=== PATIENT | male | born 1965 | race Two or more races ===

== ENCOUNTER 2025-06-14 17:56 | Inpatient (IN) | payer MEDICAID, OTHER ==
[~2025-06-14] VITALS: Ht 182.9 cm; Wt 121.4 kg
[2025-06-14 18:21] VITALS: PULSE 101; RESP 21; O2SAT 89
[2025-06-14] MEDS: FUROSEMIDE 100 MG/10ML VIAL IV ONE (18:32)
--- NOTE | 2025-06-14 18:46 | DVH ---
CHEST RADIOGRAPH Indication: sob Technique: XY CHEST PORTABLE COMPARISON: None FINDINGS: The cardiac silhouette is enlarged. The lungs demonstrate bilateral patchy airspace opacities. The pulmonary vasculature is prominent. There are small bilateral pleural effusions, [id number]-right. There is no pneumothorax. IMPRESSION: As above
[2025-06-14 18:56] LABS: Hematocrit 50.9 % (41.0-53.0); Hemoglobin 16.8 g/dL (13.5-17.5); Mean Corpuscular Hemoglobin 30.5 pg (28.0-32.0); Mean Corpuscular Volume 92.6 fL (80.0-100.0); Nucleated Red Blood Cells % 0.1 %
--- NOTE | 2025-06-14 18:58 | ED.PDOC ---
SOB-HPI HPI Comments HPI: Poor Historian. 59-year-old male who came to ER for shortness of breath. Patient does have history of anemia, the engine and congestive heart failure. Has been off his Lasix for the past 2 months. Patient complaining of shortness of breath over a month. Saturating 95% on room air Past Medical History: Anemia, hypertension, congestive heart failure Past Surgical History: Denies REVIEW OF SYSTEMS: CONSTITUTIONAL: Denies acute: fever, diaphoresis, chills, HEAD: Denies acute: headache, photophobia Eyes: Denies acute: Double vision, vision loss, eye pain, eye discharge. EARS: Denies acute: tinnitus, hearing loss, ear discharge, ear pain, THROAT: Denies acute: sore throat, swelling, difficulty swallowing , pain with swallowing, change in voice. NECK: Denies acute: neck pain, neck swelling, stiff neck. HEART: Denies acute : chest pain, palpitations, LUNGS: Denies acute: wheezing, cough, hemoptysis ABDOMEN: Denies acute: abdominal pain, Nausea, Vomiting, diarrhea, melena , hematemesis, hematochezia SKIN: Denies acute: rash, redness, lesions, itchiness. EXTREMITIES: Denies acute: calf pain, numbness, tingling, weakness, denies pain in extremity. Denies acute: Low back pain. Neuro: Denies acute: focal neurological deficit, motor or sensory focal neurological deficit, tremors, seizure like activity, confusion, dizziness, change in mental status, loss of bowel or bladder function, cauda equina like symptoms. : Denies acute: dysuria, hematuria, flank pain, increase in urinary frequency. PSYCH: Denies acute: hallucination, suicidal ideation, homicidal ideation. PHYSICAL EXAM: General: -----mild to moderate---acute distress, awake and alert. Head: normocephalic, atraumatic. No raccoon's eyes, no guy sign. Neck: supple, trachea is midline, no swelling. Throat: Normal phonation. Eyes:, no erythema, no purulent discharge, no proptosis, no icterus. Heart: regular rate, regular rhythm, no significant murmur appreciated. Lungs: Mild respiratory distress, Able to speak in full sentences. No wheezing, no rhonchi, no crackles. No stridors Abdomen: non tender to palpation, non distended, soft, no guarding, no rebound, + bowel sounds. Neuro: Awake, Alert, oriented to name, self, situation, follows commands GCS=15. Speech is normal. Skin: no petechia, no purpura, no cyanosis, non-pale, not jaundice. Lower extremities: --2/4 b/l - Pitting edema no deformity, no focal swelling, no calf TTP. Makes eye contact. moves all four extremities. Face: no apparent facial droop. ED COURSE: DISCLAIMER: This medical document was created using an electronic medical record system with voice recognition software and computerized dictation system. Although this document has been carefully reviewed, there might still be some phonetic and typographical errors. Occasional wrong-word or "sound-alike" substitutions may have occurred due to the inherent limitations of voice recognition software. These areas are purely typographical due to imperfections of the software programs and do not reflect any compromise in the patient's medical care. Please read the chart carefully and recognize, using context, where these substitutions have occurred. Chief Complaint: Shortness of Breath Time Seen by MD: 18:10 Reviewed notes: Nurses Notes, Allergies Information Source: Patient Mode of Arrival: EMS Past Medical History PAST MEDICAL HISTORY: Anemia, CHF, HTN EKG EKG : Pulse Rate (adult): 105 Cardiac Rhythm: ST Hypertrophy: LAE, AMISHA Was a procedure done? Was a procedure done?: No Differential Dx Differential Diagnosis: CHF, COPD, Pneumonia, Respiratory Distress, Other (DDx include ACS, unstable angina, anxiety, PE, pneumothroax, neoplasm, cardiac ischemia, COPD, asthma, CHF, pleural effusion, tobacco abuse, pneumonia, hypoxia, hypercapnia, anemia., infection/sepsis., pulmonary edema. Asthma, Cardiac tamponade, infection.) X-Ray, Labs, Meds, VS Vital Signs Date Time Temp Pulse Resp B/P (MAP) Pulse Ox O2 Delivery O2 Flow Rate FiO2 06/14/25 21:00 89 19 145/101 (116) 96 06/14/25 19:45 98 18 142/105 (117) 95 06/14/25 19:45 98 98 Room Air* 0 21 06/14/25 19:10 105 06/14/25 18:44 100 35 141/101 (114) 95 06/14/25 18:32 151/112 06/14/25 18:30 105 06/14/25 18:21 98.4 101 24 151/112 (125) 89 98.4 06/14/25 18:21 101 21 89 Nasal Cannula* 2 28 06/14/25 17:58 98.9 107 24 167/123 95 98.9 Lab Test 06/14/25 19:25 06/14/25 18:49 06/14/25 18:43 06/14/25 09:33 Range/Units Troponin I High Sensitivity 495 *H 462 *H </=54 ng/L Urine Color Light-yellow Yellow Urine Clarity Clear Clear Urine pH 6.5 5.0-9.0 Urine Specific Speculator 1.011 1.001-1.035 Urine Protein Trace H Negative Urine Ketones Negative Negative Urine Blood Negative Negative /uL Urine Nitrite Negative Negative Urine Bilirubin Negative Negative Urine Urobilinogen Normal Negative mg/dL Urine Leukocyte Esterase Negative Negative /uL Urine RBC 1 0 - 3 /hpf Urine Microscopic WBC < 1 0-3 /HPF Urine Squamous Epithelial Cells None seen <5 /hpf Urine Bacteria None seen None Seen /hpf Urine Glucose Normal Normal mg/dL White Blood Count 7.8 4.4-10.8 10^3/uL Red Blood Count 5.50 4.5-5.90 10^6/uL Hemoglobin 16.8 13.5-17.5 g/dL Hematocrit 50.9 41.0-53.0 % Mean Corpuscular Volume 92.6 80.0-100.0 fL Mean Corpuscular Hemoglobin 30.5 28.0-32.0 pg Mean Corpuscular Hemoglobin Concent 33.0 32.0-36.0 g/dL Red Cell Distribution Width 17.3 H 11.8-14.3 % Platelet Count 220 140-450 10^3/uL Mean Platelet Volume 9.5 6.9-10.8 fL Neutrophils (%) (Auto) 68.8 37.0-80.0 % Lymphocytes (%) (Auto) 20.0 10.0-50.0 % Monocytes (%) (Auto) 8.6 0.0-12.0 % Eosinophils (%) (Auto) 0.9 0.0-7.0 % Basophils (%) (Auto) 1.7 0.0-2.0 % Neutrophils # (Auto) 5.3 1.6-8.6 10 ^3/uL Lymphocytes # (Auto) 1.6 0.4-5.4 10 ^3/uL Monocytes # (Auto) 0.7 0-1.3 10 ^3/uL Eosinophils # (Auto) 0.1 0-0.8 10 ^3/uL Basophils # (Auto) 0.1 0-0.2 10 ^3/uL Nucleated Red Blood Cells 0.1 % Prothrombin Time 11.2 9.3-11.8 sec Prothrombin Time INR 1.06 0.9-1.15 Activated Partial Thromboplast Time 26.5 24.5-34.5 SEC Sodium Level 142 136-145 mmol/L Potassium Level 4.1 3.5-5.1 mmol/L Chloride Level 109 H 98-107 mmol/L Carbon Dioxide Level 23 20-31 mmol/L Anion Gap 10 5-15 Blood Urea Nitrogen 16 9-23 mg/dL Creatinine 1.08 0.700-1.30 mg/dL Glomerular Filtration Rate Calc 79 >90 mL/min BUN/Creatinine Ratio 14.8 10.0-20.0 Serum Glucose 113 H 74-106 mg/dL Calcium Level 8.6 L 8.7-10.4 mg/dL Total Bilirubin 1.3 H 0.2-1.0 mg/dL Aspartate Amino Transferase (AST) 63 H 13-40 U/L Alanine Aminotransferase (ALT) 117 H 7-40 U/L Alkaline Phosphatase 93 46-116 U/L B-Type Natriuretic Peptide 708.26 0-100 pg/mL Total Protein 7.3 5.7-8.2 g/dL Albumin 4.3 3.2-4.8 g/dL Urine Opiates Screen Neg NEGATIVE Urine Fentanyl Screen Neg NEGATIVE Urine Barbiturates Screen Neg NEGATIVE Urine Phencyclidine Screen Neg NEGATIVE Urine Amphetamines Screen Neg NEGATIVE Urine Benzodiazepines Screen Neg NEGATIVE Urine Cocaine Screen Neg NEGATIVE Urine Cannabinoids Screen Pos NEGATIVE [facility] [id number] [place] [id number] Ph: [phone] DIAGNOSTIC IMAGING Diagnostic Imaging Report : [id number] Signed PATIENT: YADIRA NURURO ACCT: [id number] UNIT: [id number] : 1965 LOC: ER ROOM / BED: / AGE / SEX: 59 / M ADM STATUS: REG ER SERVICE 19 ORDERING PHYSICIAN: COURT MILLER DO PROCEDURE(s): CXRP - CHEST PORTABLE REASON: sob ORDER NUMBER(s): [id number], ACCESSION NUMBER(s): [id number] CHEST RADIOGRAPH Indication: sob Technique: XY CHEST PORTABLE COMPARISON: None FINDINGS: The cardiac silhouette is enlarged. The lungs demonstrate bilateral patchy airspace opacities. The pulmonary vasculature is prominent. There are small bilateral pleural effusions, [id number]-right. There is no pneumothorax. IMPRESSION: As above ATED BY: JENNIFER VERAS MD DICTATED DATE/TIME: 06/14/251848 SIGNED BY: JENNIFER VERAS MD SIGNED DATE/TIME: 06/14/251848 CC: Time of 1ST Reevaluation: 19:08 Reevaluation 1ST: Unchanged Patient Education/Counseling: Diagnosis, Treatment Family Education/Counseling: No Family Present Comments MDM: patient presented with the above HPI.-----dyspnea-workup was initiated. patient was found with the above mentioned diagnosis. the following medications were ordered: please refer to order lists of meds and tests obtained by myself Dr. Miller. Patient ED course and VS have been stabilized. Patient has been reassessed in the ED and remained in a stable condition. Pertinent incidental findings were discussed with the patient and/or family. Patient/family voices understanding and is agreeable with plan. Patient has been observed in the ED adequate length of time to insure improvement/stability. Escalation of care considered: Consideration of escalation to observation or admission Patient was given aspirin, Rocephin, Lasix, Patient was ADMITTED to the medicine team for further evaluation and treatment of their presentation. All the reports of any imaging studies that were ordered by myself were reviewed by myself. SEPSIS Sepsis Screen Date sepsis recognized/suspect: Jun 14, 2025 Time Sepsis recognized/suspect: 1757 Recent Procedure: No On Antibiotic Therapy: No Respiratory Rate >20: Yes Heart Rate >90: Yes Temp<36 C (96.8 F) or >38.3 C: No SBP <90 or MAP <65 mmHG: No New Acute Mental Status Change: No Is the patient on CPAP, BIPAP,: No Physician Orders Interior Design Coordinator (06/14/25 ) Chest Portable (06/14/25 18:20) Electrocardigram (06/14/25 18:20) * Gi Dvh Assembly Member (06/14/25 19:40) Code Status (06/14/25 19:40) Oxygen Per Hour (06/14/25 19:40) * Cardiology Consult (06/14/25 19:48) Echo 2d Mode Cardiac Dop (06/15/25 19:40) Vital Signs Date Time Temp Pulse Resp B/P (MAP) Pulse Ox O2 Delivery O2 Flow Rate FiO2 06/14/25 21:00 89 19 145/101 (116) 96 06/14/25 19:45 98 18 142/105 (117) 95 06/14/25 19:45 98 98 Room Air* 0 21 06/14/25 19:10 105 06/14/25 18:44 100 35 141/101 (114) 95 06/14/25 18:32 151/112 06/14/25 18:30 105 06/14/25 18:21 98.4 101 24 151/112 (125) 89 98.4 06/14/25 18:21 101 21 89 Nasal Cannula* 2 28 06/14/25 17:58 98.9 107 24 167/123 95 98.9 Laboratory Tests Test 06/14/25 18:43 White Blood Count 7.8 10^3/uL (4.4-10.8) Departure 1 Departure Time of Disposition: 18:55 Impression: Primary Impression: CHF exacerbation Additional Impressions: Pleural effusion Patchy atelectasis Elevated troponin Disposition: 09 ADMITTED INPATIENT Admit to: Tele Condition: Guarded e-Prescriptions Furosemide (Lasix) 40 Mg Tab 40 MG PO DAILY for 30 Days, #30 TAB 3 Refills Prov: RISHI BORREGO MD 06/21/25 Levofloxacin Hemihydrate (LEVOFLOXACIN) 500 Mg Tab 1 TAB PO DAILY, #7 TAB Prov: MICAH GIBBS DO 06/19/25 Spironolactone (Aldactone) 25 Mg Tab 25 MG PO DAILY for 30 Days, #30 TAB 6 Refills Prov: MICAH GIBBS DO 06/19/25 Losartan Potassium (Losartan Potassium) 25 Mg Tab 25 MG PO DAILY for 30 Days, #30 TAB 6 Refills Prov: MICAH GIBBS DO 06/19/25 Empagliflozin (Jardiance) 10 Mg Tab 10 MG PO DAILY for 30 Days, #30 TAB 6 Refills Prov: MICAH GIBBS DO 06/19/25 Carvedilol (COREG) 3.125 Mg Tab 6.25 MG PO Q12HR for 30 Days, #120 TAB 6 Refills Prov: MICAH GIBBS DO 06/19/25 Aspirin (Aspirin Low Dose) 81 Mg Tab 81 MG PO DAILY for 30 Days, #30 TAB 6 Refills Prov: MICAH GIBBS DO 06/19/25 Discharged With: Self Critical Care Note Critical Care Time?: Yes (45 min-critical care time only) Heart Score Heart Score: Heart Score Response (Comments) Value History Moderate Suspicious 1 EKG Repolarization Disturb 1 Age 45-64 1 Risk Factors 1 or 2 risk factors 1 Troponin Normal limit 0 Total 4 I personally scribed for COURT MILLER DO (DVFARMI) on 06/14/25 at 19:10. Electronically submitted by Abdoulaye Cruz ([employer]). I personally scribed for COURT MILLER DO (DVFARMI) on 06/14/25 at 20:56. Electronically submitted by Abdoulaye Cruz ([employer]). I personally scribed for COURT MILLER DO (DVFARMI) on 06/15/25 at 04:32. Electronically submitted by Abdoulaye Cruz ([employer]). COURT MILLER DO Jun 14, 2025 18:58
[2025-06-14 19:10] LABS: Albumin 4.3 g/dL (3.2-4.8); Alkaline Phosphatase 93 U/L (46-116); Anion Gap 10 (5-15); BUN/Creatinine Ratio 14.8 (10.0-20.0); Blood Urea Nitrogen 16 mg/dL (9-23); Carbon Dioxide 23 mmol/L (20-31); Potassium 4.1 mmol/L (3.5-5.1); Sodium 142 mmol/L (136-145); Total Protein 7.3 g/dL (5.7-8.2)
[2025-06-14 19:16] LABS: Alanine Aminotransferase 117 U/L (7-40); Bilirubin, Total 1.3 mg/dL (0.2-1.0); Calcium 8.6 mg/dL (8.7-10.4); Chloride 109 mmol/L (98-107); Glucose 113 mg/dL (74-106)
[2025-06-14 19:45] VITALS: PULSE 98; O2SAT 98
[2025-06-14] MEDS ORDERED: ONDANSETRON HCL 4 MG/2 ML VIAL IV PRN (19:45)
[2025-06-14] MEDS ORDERED: ACETAMINOPHEN 325 MG TAB PO PRN (19:45)
[2025-06-14] MEDS ORDERED: HYDROcodone-ACET 5/325MG TAB PO PRN (19:45)
[2025-06-14] MEDS ORDERED: DOCUSATE SOD 100 MG CAP PO PRN (19:45)
[2025-06-14 19:53] LABS: Urine Protein, UAD TRACE (Negative)
[2025-06-14 21:04] LABS: INR 1.06 (0.9-1.15); Partial Thromboplastin Time 26.5 SEC (24.5-34.5); Prothrombin Time 11.2 sec (9.3-11.8)
[2025-06-14] MEDS ORDERED: NITROGLYCERIN 0.4 MG SL TAB SL PRN (21:15)
[2025-06-14] MEDS ORDERED: MORPHINE SULFATE INJ 2 MG/ml SYRG IV PRN (21:15)
--- NOTE | 2025-06-14 21:16 | DVHHP2 ---
History of Present Illness Reason for Visit: Acute exacerbation of congestive heart failure History of Present Illness The patient is a 59 year male with past medical history of anemia, CHF, and hypertension who presented to [facility] ED with complaint of shortness of breaths. Patient reports he has been off of Lasix for the past 2 months, developed bilateral lower extremity swelling, increased work of breathing, getting worse today that prompted this visit. Patient was seen and evaluated in the ED, laboratory data shows WBC 7.8, platelets 220, sodium 142, potassium 4.1, BUN 16, creatinine 1.08, glucose 113, calcium 8.6, AST 63, ALT 117, troponin 482, BNP 708.26, blood pressure 167/123 trending down to 141/111, heart rate 100, temperature 98.4 F, O2 saturation 95% on oxygen. Chest x-ray revealing bilateral patchy airspace opacities, pulmonary vasculature is prominent, small bilateral pleural effusion, left greater than right, there is no pneumothorax..Patient was started on IV Lasix, please see medication orders section in the computer. On my assessment, patient denied chest pain, no headache, dizziness, diaphoresis, currently on oxygen, no abdominal pain, diarrhea, nausea, vomiting, no fever, chills. Patient was admitted for further evaluation and medical management. Past Medical History Anemia, HTN, CHF Past Surgical History Denies all surgeries Family History Reviewed, noncontributory to the management of this case. Past Social History The patient lives at home, denies smoking, alcohol or illicit drugs abuse. Review of Systems Constitutional: Yes: Weakness; No: Fever, Chills, Sweats, Malaise, Other Eyes: No: Pain, Vision change, Conjunctivae inflammation, Eyelid inflammation, Other, Redness ENT: No: Ear pain, Ear discharge, Nose pain, Nose discharge, Nose congestion, Mouth pain, Mouth swelling, Throat pain, Throat swelling, Other Respiratory: Shortness of breath, Other (SOB at rest); No: Cough, Dry, SOB with excertion, Wheezing, Hemoptysis, Pleuritic Pain, Sputum, Wheezing Cardiovascular: No: Chest Pain, Palpitations, Orthopnea, Paroxysmal Noc. Dyspnea, Edema, Lt Headedness, Other Gastrointestinal: No: Nausea, Vomiting, Abdominal Pain, Diarrhea, Constipation, Melena, Hematochezia, Other Genitourinary: No Dysuria, No Frequency, No Incontinence, No Hematuria, No Retention, No Other Musculoskeletal: No: other, neck pain, shoulder pain, arm pain, back pain, hand pain, leg pain, foot pain Skin: No: Rash, Lesions, Jaundice, Bruising, Other Neurological: No: Weakness, Numbness, Incoordination, Change in speech, Confusion, Seizures, Other Allergies: Coded Allergies: NO KNOWN ALLERGIES (Unverified , 06/14/25) Medications Current Medications Medications Dose Ordered Sig/Quintin Route Start Time Stop Time Status Last Admin Dose Admin Furosemide 40 mg DAILY IV 06/15/25 10:00 Aspirin 81 mg DAILY PO 06/15/25 10:00 Ceftriaxone Sodium 50 ml @ 100 mls/hr DAILY@09 IV 06/15/25 09:00 Carvedilol 12.5 mg Q12HR PO 06/14/25 22:00 Clonidine HCl 0.1 mg Q4HP PRN PO 06/14/25 19:45 Levalbuterol HCl 0.625 mg Q6HR NEB 06/15/25 00:00 Sodium Chloride 10 ml Q8HR IV 06/14/25 22:00 Acetaminophen/ Hydrocodone Bitart 1 tab Q4HP PRN PO 06/14/25 19:45 Ondansetron HCl 4 mg Q4HP PRN IV 06/14/25 19:45 Docusate Sodium 100 mg BIDPRN PRN PO 06/14/25 19:45 Acetaminophen 650 mg Q6HP PRN PO 06/14/25 19:45 Exam Vital Signs Vital Signs Date Time Temp Pulse Resp B/P (MAP) Pulse Ox O2 Delivery O2 Flow Rate FiO2 06/14/25 19:10 105 06/14/25 18:44 35 141/101 (114) 95 06/14/25 18:21 98.4 98.4 06/14/25 18:21 Nasal Cannula* 2 28 General Appearance: Alert, Oriented X3, Cooperative, No acute distress HEENT: Atraumatic, PERRLA, EOMI, Mucous membr. moist/pink Respiratory: Normal air movement Cardiovascular: Regular rate, Normal S1, Normal S2, No murmurs Abdominal: Normal bowel sounds, Soft, No tenderness, No hepatospenomegaly, No masses Extremities: No clubbing, No cyanosis, No edema, Normal pulses, No tenderness/swelling Skin: No rashes, No significant lesion Neuro: Normal speech, Normal tone, Sensation intact, Cranial nerves 3-12 NL, Reflexes 2+, Other (Generalized weakness) Psych/Mental Status: Mental status NL, Mood NL Labs/Xrays Labs Test 06/14/25 19:25 06/14/25 18:49 06/14/25 18:43 Range/Units Troponin I High Sensitivity 495 *H </=54 ng/L Urine Color Light-yellow Yellow Urine Clarity Clear Clear Urine pH 6.5 5.0-9.0 Urine Specific [place] 1.011 1.001-1.035 Urine Protein Trace H Negative Urine Ketones Negative Negative Urine Blood Negative Negative /uL Urine Nitrite Negative Negative Urine Bilirubin Negative Negative Urine Urobilinogen Normal Negative mg/dL Urine Leukocyte Esterase Negative Negative /uL Urine RBC 1 0 - 3 /hpf Urine Microscopic WBC < 1 0-3 /HPF Urine Squamous Epithelial Cells None seen <5 /hpf Urine Bacteria None seen None Seen /hpf Urine Glucose Normal Normal mg/dL White Blood Count 7.8 4.4-10.8 10^3/uL Red Blood Count 5.50 4.5-5.90 10^6/uL Hemoglobin 16.8 13.5-17.5 g/dL Hematocrit 50.9 41.0-53.0 % Mean Corpuscular Volume 92.6 80.0-100.0 fL Mean Corpuscular Hemoglobin 30.5 28.0-32.0 pg Mean Corpuscular Hemoglobin Concent 33.0 32.0-36.0 g/dL Red Cell Distribution Width 17.3 H 11.8-14.3 % Platelet Count 220 140-450 10^3/uL Mean Platelet Volume 9.5 6.9-10.8 fL Neutrophils (%) (Auto) 68.8 37.0-80.0 % Lymphocytes (%) (Auto) 20.0 10.0-50.0 % Monocytes (%) (Auto) 8.6 0.0-12.0 % Eosinophils (%) (Auto) 0.9 0.0-7.0 % Basophils (%) (Auto) 1.7 0.0-2.0 % Neutrophils # (Auto) 5.3 1.6-8.6 10 ^3/uL Lymphocytes # (Auto) 1.6 0.4-5.4 10 ^3/uL Monocytes # (Auto) 0.7 0-1.3 10 ^3/uL Eosinophils # (Auto) 0.1 0-0.8 10 ^3/uL Basophils # (Auto) 0.1 0-0.2 10 ^3/uL Nucleated Red Blood Cells 0.1 % Prothrombin Time 11.2 9.3-11.8 sec Prothrombin Time INR 1.06 0.9-1.15 Activated Partial Thromboplast Time 26.5 24.5-34.5 SEC Sodium Level 142 136-145 mmol/L Potassium Level 4.1 3.5-5.1 mmol/L Chloride Level 109 H 98-107 mmol/L Carbon Dioxide Level 23 20-31 mmol/L Anion Gap 10 5-15 Blood Urea Nitrogen 16 9-23 mg/dL Creatinine 1.08 0.700-1.30 mg/dL Glomerular Filtration Rate Calc 79 >90 mL/min BUN/Creatinine Ratio 14.8 10.0-20.0 Serum Glucose 113 H 74-106 mg/dL Calcium Level 8.6 L 8.7-10.4 mg/dL Total Bilirubin 1.3 H 0.2-1.0 mg/dL Aspartate Amino Transferase (AST) 63 H 13-40 U/L Alanine Aminotransferase (ALT) 117 H 7-40 U/L Alkaline Phosphatase 93 46-116 U/L B-Type Natriuretic Peptide 708.26 0-100 pg/mL Total Protein 7.3 5.7-8.2 g/dL Albumin 4.3 3.2-4.8 g/dL PATIENT: MELISSA NUR ACCT: [id number] UNIT: [id number] : 1965 LOC: ER ROOM / BED: / AGE / SEX: 59 / M ADM STATUS: REG ER SERVICE 1820 ORDERING PHYSICIAN: COURT MILLER DO PROCEDURE(s): CXRP - CHEST PORTABLE REASON: sob ORDER NUMBER(s): [id number], ACCESSION NUMBER(s): [id number] CHEST RADIOGRAPH Indication: sob Technique: XY CHEST PORTABLE COMPARISON: None FINDINGS: The cardiac silhouette is enlarged. The lungs demonstrate bilateral patchy airspace opacities. The pulmonary vasculature is prominent. There are small bilateral pleural effusions, [id number]-right. There is no pneumothorax. IMPRESSION: As above SEPSIS Sepsis Screen Date sepsis recognized/suspect: Jun 14, 2025 Time Sepsis recognized/suspect: 1820 Recent Procedure: No On Antibiotic Therapy: No Respiratory Rate >20: Yes Heart Rate >90: Yes Temp<36 C (96.8 F) or >38.3 C: No SBP <90 or MAP <65 mmHG: No New Acute Mental Status Change: No Is the patient on CPAP, BIPAP,: No Physician Orders Program Development Specialist (06/14/25 ) Chest Portable (06/14/25 18:20) Electrocardigram (06/14/25 18:20) Troponin-I Hs (06/14/25 21:20) Furosemide Injection (Lasix Injection) (06/15/25 10:00) Aspirin Tablet (06/15/25 10:00) Ceftriaxone 1gm/50ml (Rocephin) (06/15/25 09:00) Carvedilol Tablet (Coreg Tablet) (06/14/25 22:00) Clonidine Hcl Tablet (Catapres Tablet) (06/14/25 19:45) * Gi Dvh Lead Informatica Developer (06/14/25 19:40) Levalbuterol Hcl (Xopenex Medneb) (06/15/25 00:00) Allergies (06/14/25 19:40) Code Status (06/14/25 19:40) Sodium Chloride Lock (Saline Lock Ns) (06/14/25 22:00) Oxygen Per Hour (06/14/25 19:40) Hydrocodone-Acet 5/325mg Tab (Kiel 5/32 (06/14/25 19:45) Ondansetron Hcl (Zofran) (06/14/25 19:45) Docusate Sodium Capsule (Colace Capsule) (06/14/25 19:45) Complete Blood Count (06/15/25 04:00) Comprehensive Metabolic Panel (06/15/25 04:00) Cardiac Diet-2gna,Lofat,Lochol (06/15/25 Breakfast) Echo 2d Mode Cardiac Dop (06/14/25 19:40) Condition: Serious (06/14/25 19:40) Acetaminophen Tablet (Tylenol Tablet) (06/14/25 19:45) Bedrest With Bathroom Privileg (06/14/25 19:40) Maintain Bed Rest (06/14/25 19:40) Sequential Compression Device (06/14/25 ) * Cardiology Consult (06/14/25 19:48) Drug Screen (06/14/25 20:04) Vital Signs Date Time Temp Pulse Resp B/P (MAP) Pulse Ox O2 Delivery O2 Flow Rate FiO2 06/14/25 19:10 105 06/14/25 18:44 100 35 141/101 (114) 95 06/14/25 18:32 151/112 06/14/25 18:30 105 06/14/25 18:21 98.4 101 24 151/112 (125) 89 98.4 06/14/25 18:21 101 21 89 Nasal Cannula* 2 28 06/14/25 17:58 98.9 107 24 167/123 95 98.9 Laboratory Tests Test 06/14/25 18:43 White Blood Count 7.8 10^3/uL (4.4-10.8) Medications Medications Dose Ordered Sig/Quintin Route Start Time Stop Time Status Last Admin Dose Admin Aspirin 324 mg ONCE ONCE PO 06/14/25 19:30 06/14/25 19:31 DC 06/14/25 20:01 324 MG Furosemide 60 mg ONCE ONCE IV 06/14/25 18:30 06/14/25 18:31 DC 06/14/25 18:32 60 MG Assessment/Plan Assessment/Plan Acute exacerbation of congestive heart failure Elevated troponin Hypertensive urgency Elevated liver enzymes Generalized weakness Plan 1. Admit to telemetry unit 2. Breathing treatment 3. Pain control management 4. Management of fluids and electrolytes 5. Consultation for Cardiology 6. Diagnostic tests chest x-ray 7. DVT prophylaxis-on aspirin 8. Repeat labs CBC, CMP in a.m. 9. Continue with current medical management 10. Treatment plan discussed with patient and RN. Patient verbalized understanding. Plan discussed with: Patient, Other (RN) My Orders Orders - NELL COLLIER DNP Procedure Category Date Status Time Furosemide Injection PHA 06/15/25 In Process (Lasix Injection) 10:00 Aspirin Tablet PHA 06/15/25 In Process 10:00 Ceftriaxone 1gm/50ml PHA 06/15/25 In Process (Rocephin) 09:00 Carvedilol Tablet PHA 06/14/25 In Process (Coreg Tablet) 22:00 Clonidine Hcl Tablet PHA 06/14/25 In Process (Catapres Tablet) 19:45 * Gi Dvh Lead Informatica Developer CONS 06/14/25 Transmitted 19:40 Levalbuterol Hcl PHA 06/15/25 In Process (Xopenex Medneb) 00:00 Allergies BIJAL 06/14/25 In Process 19:40 Code Status CODE 06/14/25 Transmitted 19:40 Sodium Chloride Lock PHA 06/14/25 In Process (Saline Lock Ns) 22:00 Oxygen Per Hour RT 06/14/25 Transmitted 19:40 Hydrocodone-Acet PHA 06/14/25 In Process 5/325mg Tab (Kiel 19:45 Ondansetron Hcl PHA 06/14/25 In Process (Zofran) 19:45 Docusate Sodium PHA 06/14/25 In Process Capsule (Colace 19:45 Complete Blood Count LAB 06/15/25 Verified 04:00 Comprehensive LAB 06/15/25 Verified Metabolic Panel 04:00 Cardiac DIET 06/15/25 Transmitted Diet-2gna,Lofat,Lochol Breakfast Echo 2d Mode Cardiac US 06/14/25 Logged DOP 19:40 Condition: Serious BIJAL 06/14/25 In Process 19:40 Acetaminophen Tablet PHA 06/14/25 In Process (Tylenol Tablet) 19:45 Bedrest With Bathroom BIJAL 06/14/25 In Process Privileg 19:40 Maintain Bed Rest BIJAL 06/14/25 In Process 19:40 Sequential BIJAL 06/14/25 In Process Compression Device * Cardiology Consult CONS 06/14/25 Transmitted 19:48 Problem List: (1) Acute exacerbation of congestive heart failure (2) Elevated troponin (3) Hypertensive urgency (4) Elevated liver enzymes (5) Generalized weakness Date of Service: Jun 14, 2025 Billing Provider: NELL COLLIER DNP Common Visit Codes: [id number] INP/OBS CARE (HIGH) NELL COLLIER DNP Jun 14, 2025 21:16
[2025-06-14] MEDS: SODIUM CHLOR 0.9% PF (SALINE LOCK) 10ML VIAL/SYR IV SCH (22:01)
[2025-06-14] MEDS: CARVEDILOL 12.5 MG TAB PO SCH (22:06)
[2025-06-14 23:48] VITALS: PULSE 81; RESP 29; O2SAT 97
[2025-06-14] MEDS: LEVALBUTEROL HCL 1.25 MG/3 ML NEB NEB SCH (23:48)
[2025-06-14 23:58] VITALS: PULSE 81; RESP 22; O2SAT 98
[2025-06-15] VITALS (18 sets, daily range): BP systolic 109–141; BP diastolic 75–101; PULSE 65–105; RESP 16–24; TEMP 97.6–98.4; O2SAT 93–100
[2025-06-15 03:59] LABS: Hematocrit 49.2 % (41.0-53.0); Hemoglobin 16.2 g/dL (13.5-17.5); Mean Corpuscular Hemoglobin 30.4 pg (28.0-32.0); Mean Corpuscular Volume 92.0 fL (80.0-100.0); Nucleated Red Blood Cells % 0.2 %
[2025-06-15 04:16] LABS: Alanine Aminotransferase 109 U/L (7-40); Albumin 4.0 g/dL (3.2-4.8); Alkaline Phosphatase 86 U/L (46-116); Anion Gap 11 (5-15); BUN/Creatinine Ratio 12.6 (10.0-20.0); Blood Urea Nitrogen 14 mg/dL (9-23); Calcium 8.4 mg/dL (8.7-10.4); Carbon Dioxide 24 mmol/L (20-31); Chloride 107 mmol/L (98-107); Glucose 115 mg/dL (74-106); Potassium 3.9 mmol/L (3.5-5.1); Sodium 142 mmol/L (136-145); Total Protein 7.0 g/dL (5.7-8.2)
[2025-06-15 04:19] LABS: Bilirubin, Total 1.5 mg/dL (0.2-1.0)
[2025-06-15] MEDS: FUROSEMIDE 40 MG/4 ML VIAL IV SCH (08:51)
[2025-06-15 09:50] LABS: Triglycerides 138 mg/dL (< 150)
[2025-06-15 09:52] LABS: Cholesterol 169 mg/dL (< 200)
[2025-06-15 09:58] LABS: HDL Cholesterol 39 mg/dL (40-59)
--- NOTE | 2025-06-15 12:07 | DVHINCON2 ---
Date Seen: Jun 15, 2025 Referring Physician Ralph Reason for Consultation CHF History of Present Illness 59-year-old male with PMH for HTN, HLD, diabetes, CHF, presents to the hospital with worsening shortness of breath and lower extremity edema. Patient states symptoms have been progressively getting worse over the last couple of months and started noticed that his swelling reach his thigh level and felt tight. P atient currently flat was having a hard time breathing therefore sought attention and came to the ER. Of note patient states he has been off his medications for the last 2 months as he ran out of his meds and has not followed up with PCP. Upon evaluation in the ER patient found to have elevated troponins trending 462, 495, 384, 346, 342. Patient denies any chest pain though does endorse he once was supposed to have a stress test and though was never completed. CXR done showed bilateral patchy airspace opacities, pulmonary vascular congestion, small bilateral pleural effusion left greater than right. EKG reviewed and shows sinus tachycardia at 105 beats per minute, no significant ST and T-wave abnormalities noted. Past Medical History As stated above Past Surgical History As stated above Family History: Hypertension G8 MOTHER G8 FATHER Social History Denies recent alcohol tobacco or illicit drug use, remote history of smoking 25 years ago. Allergies: Coded Allergies: NO KNOWN ALLERGIES (Unverified , 06/14/25) Current Medications Current Medications Medications (Trade) Dose Ordered Sig/Quintin Route PRN Reason Start Time Stop Time Status Last Admin Furosemide (Lasix Injection) 40 mg DAILY IV 06/15/25 10:00 06/15/25 08:51 Aspirin 81 mg DAILY PO 06/15/25 10:00 06/15/25 08:50 Ceftriaxone Sodium 50 ml @ 100 mls/hr DAILY@09 IV 06/15/25 09:00 06/15/25 08:49 Carvedilol (Coreg Tablet) 12.5 mg Q12HR PO 06/14/25 22:00 06/15/25 08:50 Clonidine HCl (Catapres Tablet) 0.1 mg Q4HP PRN PO SBP>150 06/14/25 19:45 Levalbuterol HCl (Xopenex Medneb) 0.625 mg Q6HR NEB 06/15/25 00:00 06/15/25 11:12 Sodium Chloride (Saline Lock Ns) 10 ml Q8HR IV 06/14/25 22:00 06/15/25 06:26 Acetaminophen/ Hydrocodone Bitart ([place] 5/325MG Tab) 1 tab Q4HP PRN PO MODERATE PAIN (4-6 PAIN SCALE) 06/14/25 19:45 Ondansetron HCl (Zofran) 4 mg Q4HP PRN IV NAUSEA / VOMITING 06/14/25 19:45 Docusate Sodium (Colace Capsule) 100 mg BIDPRN PRN PO FOR CONSTIPATION 06/14/25 19:45 Acetaminophen (Tylenol Tablet) 650 mg Q6HP PRN PO PAIN SCALE 1-3 OR TEMP>100.4 06/14/25 19:45 Nitroglycerin (Ntrostat Sublingual) 0.4 mg Q5MINP PRN SL FOR CHEST PAIN 06/14/25 21:15 Morphine Sulfate 2 mg Q30M PRN IV FOR CHEST PAIN 06/14/25 21:15 Review of Systems Constitutional: No: Fever, Chills, Sweats, Weakness, Malaise, Other Eyes: No: Pain, Vision change, Conjunctivae inflammation, Eyelid inflammation, Other, Redness ENT: No: Ear pain, Ear discharge, Nose pain, Nose discharge, Nose congestion, Mouth pain, Mouth swelling, Throat pain, Throat swelling, Other Respiratory: No: Cough, Dry, Shortness of breath, SOB with exertion, Wheezing, Hemoptysis, Pleuritic Pain, Sputum, Wheezing, Other Cardiovascular: ; No: Chest Pain Palpitations, Orthopnea, Paroxysmal Noc. Dyspnea, Edema, Lt Headedness, Other Gastrointestinal: No: Nausea, Vomiting, Abdominal Pain, Diarrhea, Constipation, Melena, Hematochezia, Other Genitourinary: No Dysuria, No Frequency, No Incontinence, No Hematuria, No Retention, No Other Musculoskeletal: neck pain; No: other, shoulder pain, arm pain, back pain, hand pain, leg pain, foot pain Skin: No: Rash, Lesions, Jaundice, Bruising, Other Neurological: Other (Dizziness, headache.); No: Weakness, Numbness, Incoordination, Change in speech, Confusion, Seizures Vital Signs Vital Signs Date Time Temp Pulse Resp B/P (MAP) Pulse Ox O2 Delivery O2 Flow Rate FiO2 06/15/25 11:18 99 20 99 06/15/25 11:12 Nasal Cannula* 4 36 06/15/25 09:00 98.2 110/75 (87) 98.2 Physical Exam General appearance: Patient is well-developed, well-nourished, in acute distress. HEENT: Exam shows: Normocephalic, atraumatic, PERRLA, EOMI Neck: Supple, no bruits Chest: Equal chest excursion bilaterally. Breath sounds diminished/rhonchi. Heart: Rhythm: Regular rate; no murmur or gallop Abdomen: Exam shows: Soft, nontender, nondistended Musculoskeletal: No clubbing, no cyanosis, trace lower extremity edema Dermatology: Skin warm, moist. Neurological: Exam shows: Alert and oriented x4, normal speech Available prior records, labs, EKG, rhythm strips reviewed and interpreted Labs/Diagnostic Data Labs Test 06/15/25 06:55 06/15/25 03:17 06/14/25 18:49 06/14/25 18:43 Range/Units Troponin I High Sensitivity 342 *H </=54 ng/L Triglycerides Level 138 < 150 mg/dL Cholesterol Level 169 < 200 mg/dL LDL Cholesterol 112 H < 100 mg/dL HDL Cholesterol 39 L 40-59 mg/dL White Blood Count 9.4 4.4-10.8 10^3/uL Red Blood Count 5.35 4.5-5.90 10^6/uL Hemoglobin 16.2 13.5-17.5 g/dL Hematocrit 49.2 41.0-53.0 % Mean Corpuscular Volume 92.0 80.0-100.0 fL Mean Corpuscular Hemoglobin 30.4 28.0-32.0 pg Mean Corpuscular Hemoglobin Concent 33.0 32.0-36.0 g/dL Red Cell Distribution Width 17.0 H 11.8-14.3 % Platelet Count 226 140-450 10^3/uL Mean Platelet Volume 9.9 6.9-10.8 fL Neutrophils (%) (Auto) 64.5 37.0-80.0 % Lymphocytes (%) (Auto) 23.0 10.0-50.0 % Monocytes (%) (Auto) 10.2 0.0-12.0 % Eosinophils (%) (Auto) 1.2 0.0-7.0 % Basophils (%) (Auto) 1.1 0.0-2.0 % Neutrophils # (Auto) 6.1 1.6-8.6 10 ^3/uL Lymphocytes # (Auto) 2.2 0.4-5.4 10 ^3/uL Monocytes # (Auto) 1.0 0-1.3 10 ^3/uL Eosinophils # (Auto) 0.1 0-0.8 10 ^3/uL Basophils # (Auto) 0.1 0-0.2 10 ^3/uL Nucleated Red Blood Cells 0.2 % Sodium Level 142 136-145 mmol/L Potassium Level 3.9 3.5-5.1 mmol/L Chloride Level 107 98-107 mmol/L Carbon Dioxide Level 24 20-31 mmol/L Anion Gap 11 5-15 Blood Urea Nitrogen 14 9-23 mg/dL Creatinine 1.11 0.700-1.30 mg/dL Glomerular Filtration Rate Calc 76 >90 mL/min BUN/Creatinine Ratio 12.6 10.0-20.0 Serum Glucose 115 H 74-106 mg/dL Calcium Level 8.4 L 8.7-10.4 mg/dL Total Bilirubin 1.5 H 0.2-1.0 mg/dL Aspartate Amino Transferase (AST) 60 H 13-40 U/L Alanine Aminotransferase (ALT) 109 H 7-40 U/L Alkaline Phosphatase 86 46-116 U/L Total Protein 7.0 5.7-8.2 g/dL Albumin 4.0 3.2-4.8 g/dL Urine Color Light-yellow Yellow Urine Clarity Clear Clear Urine pH 6.5 5.0-9.0 Urine Specific [place] 1.011 1.001-1.035 Urine Protein Trace H Negative Urine Ketones Negative Negative Urine Blood Negative Negative /uL Urine Nitrite Negative Negative Urine Bilirubin Negative Negative Urine Urobilinogen Normal Negative mg/dL Urine Leukocyte Esterase Negative Negative /uL Urine RBC 1 0 - 3 /hpf Urine Microscopic WBC < 1 0-3 /HPF Urine Squamous Epithelial Cells None seen <5 /hpf Urine Bacteria None seen None Seen /hpf Urine Glucose Normal Normal mg/dL Prothrombin Time 11.2 9.3-11.8 sec Prothrombin Time INR 1.06 0.9-1.15 Activated Partial Thromboplast Time 26.5 24.5-34.5 SEC B-Type Natriuretic Peptide 708.26 0-100 pg/mL Test 06/14/25 09:33 Range/Units Assessment * Acute on chronic CHF - continue diuresis with IV Lasix. Diuresing well overnight, lower extremity edema improved. Check echocardiogram. * NSTEMI likely type 2 - denies chest pain. EKG negative for acute ischemic changes. Continue on aspirin and statin. Follow up echo. Patient will need ischemic workup once breathing stable and infection with pneumonia clears. * HTN - continue on Coreg 12.5 mg p.o. twice daily, BP stable on review. * Dyslipidemia- statin. * Acute hypoxic respiratory failure, pneumonia, CHF - continue IV antibiotics. Continue diuresing. * Medication noncompliance - strongly advised compliance. * JASKARAN - Outpatient sleep study recommended. Case Discussed with Dr Lozada. Continue diuresis with Lasix, continue IV antibiotics. Follow up echo. Ischemic workup in the future once respiratory status improves and pneumonia resolves. Critical care, time spent: 42 minutes This medical document was created using an electronic medical record system with voice recognition software and computerized dictation system. Although this document has been carefully reviewed, there might still be some phonetic and typographical errors. Occasional wrong-word or ``sound-alike substitutions may have occurred due to the inherent limitations of voice recognition software. These areas are purely typographical due to imperfections of the software programs and do not reflect any compromise in the patient's medical care. Please read the chart carefully and recognize, using context, where these s ubstitutions have occurred. Thank you for allowing me to participate in the management of this patient. The treatment plan was discussed with and agreed upon by patient/family including requesting consultants and ordering of imaging/procedures. Plan discussed with: Patient NYHA Physical activity limitations: Class4(Severe)discomfort Date of Service: Jun 15, 2025 Billing Provider: FREDDIE CHENEY Cardiology Common Codes: [id number] INP/OBS CARE (High), [id number] CARE 30-74 MIN FREDDIE CHENEY Jun 15, 2025 12:07
[2025-06-15 12:11] LABS: Amphetamine Screen, Urine Neg (NEGATIVE); Barbiturate Scree,Urine Neg (NEGATIVE); Benzodiazephine Screen, Urine Neg (NEGATIVE); Cannabinoid Screen, Urine Pos (NEGATIVE); Cocaine Screen, Urine Neg (NEGATIVE); Opiate Scree,Urine Neg (NEGATIVE); Phencyclidine Screen, Urine Neg (NEGATIVE)
--- NOTE | 2025-06-15 16:47 | DVHSR ---
APPROVED REPORT EXAM: Two-dimensional and M-mode echocardiogram with Doppler and color Doppler. Blood Pressure: 110/75 mmHg INDICATION CHF exacerbation, unspecified RISK FACTORS Obesity: Height: 6'0", Weight: 160 DIMENSIONS LVDd 6.2 (3.8-5.7cm) LA (2D) 4.7 (1.9-4.0cm) Aortic Root 3.9 (2.0-3.7cm) LVDs 5.7 (2.5-4.0cm) LA (MM) (1.9-4.0cm) Aortic Cusp Exc 1.7 (1.5-2.0cm) EF (%) 15.0 (55-70%) Rt. [place]rium 5.0 (1.9-4.0cm) Asc. Aorta cm IVSd 1.2 (0.7-1.1cm) RV (D) 4.8 (1.8-2.4cm) PWd 1.6 (0.7-1.1cm) Mitral Valve Mitral Mitral Stenosis E wave 1.06m/s MV Mean GR. mmHg E/A ratio 0.0 2D MVA cm2 Aortic Valve Aortic Valve Aortic Stenosis V1 0.73m/s AO Mean GR. 4mmHg V2 1.34m/s AO Peak GR. 7mmHg LVOT Diameter 2.4 (1.8-2.4cm) Doppler TRINA 2.46cm2 AI P 1/2 Time 523.15ms Pulmonic Valve V2 0.58m/s Tricuspid Valve TR Velocity 3.46m/s RVSP 63mmHg Other Information Technically limited study due to body habitus, patient sitting up short of breath. Conclusion DILATED ALL CARDIAC CHAMBERS LV EF IS ONLY 15 % SEVERE LV AND RV GLOBAL HYPOKINESIS MODERATE DEGREE MR AND TR MODERATE DEGREE AORTIC REGURGITATION RVSP IS 63 MM OF HG AND IS VERY HIGH CRITICAL PULMONARY HYPERTENSION NO EFFUSION
--- NOTE | 2025-06-15 18:32 | DVHINCON2 ---
Date of service: Jun 15, [address] Capellan Reason for Consultation Anemia History of Present Illness 59-year-old male with a history of anemia congestive heart failure hypertension presented to [facility] with complaints of shortness of breath. Patient has extremity swelling No gross GI bleeding has nausea anorexia Past Medical History Anemia hypertension congestive heart Past Surgical History None Family History: Hypertension G8 MOTHER G8 FATHER Family History Noncontributory Social History Denies smoking or drinking Allergies: Coded Allergies: NO KNOWN ALLERGIES (Unverified , 06/14/25) Current Medications Current Medications Medications (Trade) Dose Ordered Sig/Quintin Route PRN Reason Start Time Stop Time Status Last Admin Furosemide (Lasix Injection) 40 mg DAILY IV 06/15/25 10:00 06/15/25 08:51 Aspirin 81 mg DAILY PO 06/15/25 10:00 06/15/25 08:50 Ceftriaxone Sodium 50 ml @ 100 mls/hr DAILY@09 IV 06/15/25 09:00 06/15/25 08:49 Carvedilol (Coreg Tablet) 12.5 mg Q12HR PO 06/14/25 22:00 06/15/25 08:50 Clonidine HCl (Catapres Tablet) 0.1 mg Q4HP PRN PO SBP>150 06/14/25 19:45 Levalbuterol HCl (Xopenex Medneb) 0.625 mg Q6HR NEB 06/15/25 00:00 06/15/25 11:12 Sodium Chloride (Saline Lock Ns) 10 ml Q8HR IV 06/14/25 22:00 06/15/25 13:39 Acetaminophen/ Hydrocodone Bitart ([place] 5/325MG Tab) 1 tab Q4HP PRN PO MODERATE PAIN (4-6 PAIN SCALE) 06/14/25 19:45 Ondansetron HCl (Zofran) 4 mg Q4HP PRN IV NAUSEA / VOMITING 06/14/25 19:45 Docusate Sodium (Colace Capsule) 100 mg BIDPRN PRN PO FOR CONSTIPATION 06/14/25 19:45 Acetaminophen (Tylenol Tablet) 650 mg Q6HP PRN PO PAIN SCALE 1-3 OR TEMP>100.4 06/14/25 19:45 Nitroglycerin (Ntrostat Sublingual) 0.4 mg Q5MINP PRN SL FOR CHEST PAIN 06/14/25 21:15 Morphine Sulfate 2 mg Q30M PRN IV FOR CHEST PAIN 06/14/25 21:15 Review of Systems Noncontributory Vital Signs Vital Signs Date Time Temp Pulse Resp B/P (MAP) Pulse Ox O2 Delivery O2 Flow Rate FiO2 06/15/25 17:00 97.9 75 19 109/77 (88) 96 97.9 06/15/25 11:12 Nasal Cannula* 4 36 Physical Exam Slightly on the obese side male in no acute distress Vital stable Lungs are clear Cardiovascular unremarkable Abdomen is slightly obese no tenderness no rigidity no guarding Extremities no edema Labs/Diagnostic Data Labs Test 06/15/25 06:55 06/15/25 03:17 06/14/25 18:49 06/14/25 18:43 Range/Units Troponin I High Sensitivity 342 *H </=54 ng/L Triglycerides Level 138 < 150 mg/dL Cholesterol Level 169 < 200 mg/dL LDL Cholesterol 112 H < 100 mg/dL HDL Cholesterol 39 L 40-59 mg/dL White Blood Count 9.4 4.4-10.8 10^3/uL Red Blood Count 5.35 4.5-5.90 10^6/uL Hemoglobin 16.2 13.5-17.5 g/dL Hematocrit 49.2 41.0-53.0 % Mean Corpuscular Volume 92.0 80.0-100.0 fL Mean Corpuscular Hemoglobin 30.4 28.0-32.0 pg Mean Corpuscular Hemoglobin Concent 33.0 32.0-36.0 g/dL Red Cell Distribution Width 17.0 H 11.8-14.3 % Platelet Count 226 140-450 10^3/uL Mean Platelet Volume 9.9 6.9-10.8 fL Neutrophils (%) (Auto) 64.5 37.0-80.0 % Lymphocytes (%) (Auto) 23.0 10.0-50.0 % Monocytes (%) (Auto) 10.2 0.0-12.0 % Eosinophils (%) (Auto) 1.2 0.0-7.0 % Basophils (%) (Auto) 1.1 0.0-2.0 % Neutrophils # (Auto) 6.1 1.6-8.6 10 ^3/uL Lymphocytes # (Auto) 2.2 0.4-5.4 10 ^3/uL Monocytes # (Auto) 1.0 0-1.3 10 ^3/uL Eosinophils # (Auto) 0.1 0-0.8 10 ^3/uL Basophils # (Auto) 0.1 0-0.2 10 ^3/uL Nucleated Red Blood Cells 0.2 % Sodium Level 142 136-145 mmol/L Potassium Level 3.9 3.5-5.1 mmol/L Chloride Level 107 98-107 mmol/L Carbon Dioxide Level 24 20-31 mmol/L Anion Gap 11 5-15 Blood Urea Nitrogen 14 9-23 mg/dL Creatinine 1.11 0.700-1.30 mg/dL Glomerular Filtration Rate Calc 76 >90 mL/min BUN/Creatinine Ratio 12.6 10.0-20.0 Serum Glucose 115 H 74-106 mg/dL Calcium Level 8.4 L 8.7-10.4 mg/dL Total Bilirubin 1.5 H 0.2-1.0 mg/dL Aspartate Amino Transferase (AST) 60 H 13-40 U/L Alanine Aminotransferase (ALT) 109 H 7-40 U/L Alkaline Phosphatase 86 46-116 U/L Total Protein 7.0 5.7-8.2 g/dL Albumin 4.0 3.2-4.8 g/dL Urine Color Light-yellow Yellow Urine Clarity Clear Clear Urine pH 6.5 5.0-9.0 Urine Specific [place] 1.011 1.001-1.035 Urine Protein Trace H Negative Urine Ketones Negative Negative Urine Blood Negative Negative /uL Urine Nitrite Negative Negative Urine Bilirubin Negative Negative Urine Urobilinogen Normal Negative mg/dL Urine Leukocyte Esterase Negative Negative /uL Urine RBC 1 0 - 3 /hpf Urine Microscopic WBC < 1 0-3 /HPF Urine Squamous Epithelial Cells None seen <5 /hpf Urine Bacteria None seen None Seen /hpf Urine Glucose Normal Normal mg/dL Prothrombin Time 11.2 9.3-11.8 sec Prothrombin Time INR 1.06 0.9-1.15 Activated Partial Thromboplast Time 26.5 24.5-34.5 SEC B-Type Natriuretic Peptide 708.26 0-100 pg/mL Test 06/14/25 09:33 Range/Units Urine Opiates Screen Neg NEGATIVE Urine Fentanyl Screen Neg NEGATIVE Urine Barbiturates Screen Neg NEGATIVE Urine Phencyclidine Screen Neg NEGATIVE Urine Amphetamines Screen Neg NEGATIVE Urine Benzodiazepines Screen Neg NEGATIVE Urine Cocaine Screen Neg NEGATIVE Urine Cannabinoids Screen Pos NEGATIVE Assessment 59-year-old male with congestive heart failure anemia with abnormal liver enzymes obesity. Possibility of maybe the cardiac liver enzymes apparently congestive heart failure of the possibility of mesh MASLD or PERALES can not be excluded Hemoglobin is stable now Plan/Recommendation We will recommend to correct the congestive heart failure follow the liver functions if liver functions continue to be high or anemia persist may need further evaluation as necessary for the time being we will to conservative treatment and control of the congestive heart failure closely thank you Dr. Figueroa Plan discussed with: Patient REYES FIGUEROA MD Jun 15, 2025 18:32
--- NOTE | 2025-06-15 22:29 | DVHINCON2 ---
Date Seen: Jun 15, 2025 Referring Physician Ralph Reason for Consultation CHF History of Present Illness This is a 59-year-old male with a PMH of HTN, HLD, diabetes, CHF, presents to the hospital with worsening shortness of breath and lower extremity edema. Patient states symptoms have been progressively getting worse over the last couple of months and started noticed that his swelling reach his thigh level and felt tight. Patient currently flat was having a hard time breathing therefore sought attention and came to the ER. Of note patient states he has been off his medications for the last 2 months as he ran out of his meds and has not followed up with PCP. Upon evaluation in the ED patient found to have elevated troponins trending 462, 495, 384, 346, 342. Patient denies any chest pain though does endorse he once was supposed to have a stress test and though was never completed. Chest x-ray showed bilateral patchy airspace opacities, pulmonary vascular congestion, small bilateral pleural effusion left greater than right. EKG reviewed and shows sinus tachycardia at 105 beats per minute, no significant ST and T-wave abnormalities noted. Patient was admitted to the hospital. I am asked to consult on this patient. Past Medical History As stated above Past Surgical History As stated above Family History: Hypertension G8 MOTHER G8 FATHER Allergies: Coded Allergies: NO KNOWN ALLERGIES (Unverified , 06/14/25) Current Medications Current Medications Medications (Trade) Dose Ordered Sig/Quintin Route PRN Reason Start Time Stop Time Status Last Admin Furosemide (Lasix Injection) 40 mg DAILY IV 06/15/25 10:00 06/15/25 08:51 Aspirin 81 mg DAILY PO 06/15/25 10:00 06/15/25 08:50 Ceftriaxone Sodium 50 ml @ 100 mls/hr DAILY@09 IV 06/15/25 09:00 06/15/25 08:49 Carvedilol (Coreg Tablet) 12.5 mg Q12HR PO 06/14/25 22:00 06/15/25 08:50 Clonidine HCl (Catapres Tablet) 0.1 mg Q4HP PRN PO SBP>150 06/14/25 19:45 Levalbuterol HCl (Xopenex Medneb) 0.625 mg Q6HR NEB 06/15/25 00:00 06/15/25 11:12 Sodium Chloride (Saline Lock Ns) 10 ml Q8HR IV 06/14/25 22:00 06/15/25 06:26 Acetaminophen/ Hydrocodone Bitart ([place] 5/325MG Tab) 1 tab Q4HP PRN PO MODERATE PAIN (4-6 PAIN SCALE) 06/14/25 19:45 Ondansetron HCl (Zofran) 4 mg Q4HP PRN IV NAUSEA / VOMITING 06/14/25 19:45 Docusate Sodium (Colace Capsule) 100 mg BIDPRN PRN PO FOR CONSTIPATION 06/14/25 19:45 Acetaminophen (Tylenol Tablet) 650 mg Q6HP PRN PO PAIN SCALE 1-3 OR TEMP>100.4 06/14/25 19:45 Nitroglycerin (Ntrostat Sublingual) 0.4 mg Q5MINP PRN SL FOR CHEST PAIN 06/14/25 21:15 Morphine Sulfate 2 mg Q30M PRN IV FOR CHEST PAIN 06/14/25 21:15 Review of Systems Constitutional: No: Fever, Chills, Sweats, Weakness, Malaise, Other Eyes: No: Pain, Vision change, Conjunctivae inflammation, Eyelid inflammation, Other, Redness ENT: No: Ear pain, Ear discharge, Nose pain, Nose discharge, Nose congestion, Mouth pain, Mouth swelling, Throat pain, Throat swelling, Other Respiratory: No: Cough, Dry, Shortness of breath, SOB with exertion, Wheezing, Hemoptysis, Pleuritic Pain, Sputum, Wheezing, Other Cardiovascular: ; No: Chest Pain Palpitations, Orthopnea, Paroxysmal Noc. Dyspnea, Edema, Lt Headedness, Other Gastrointestinal: No: Nausea, Vomiting, Abdominal Pain, Diarrhea, Constipation, Melena, Hematochezia, Other Genitourinary: No Dysuria, No Frequency, No Incontinence, No Hematuria, No Retention, No Other Musculoskeletal: neck pain; No: other, shoulder pain, arm pain, back pain, hand pain, leg pain, foot pain Skin: No: Rash, Lesions, Jaundice, Bruising, Other Neurological: Other (Dizziness, headache.); No: Weakness, Numbness, Incoordination, Change in speech, Confusion, Seizures Vital Signs Vital Signs Date Time Temp Pulse Resp B/P (MAP) Pulse Ox O2 Delivery O2 Flow Rate FiO2 06/15/25 11:18 99 20 99 06/15/25 11:12 Nasal Cannula* 4 36 06/15/25 09:00 98.2 110/75 (87) 98.2 Physical Exam GENERAL: Alert and oriented x 3. No acute distress. EYES: PERRL, EOMI. Anicteric. HENT: Moist mucous membranes. LUNGS: Diminished breath sounds. CARDIOVASCULAR: Regular rate and rhythm. ABDOMEN: Soft, nontender and nondistended. EXTREMITIES: No edema. NEUROLOGIC: No focal neurological deficits. SKIN: Warm, dry. Labs/Diagnostic Data Labs Test 06/15/25 06:55 06/15/25 03:17 06/14/25 18:49 06/14/25 18:43 Range/Units Troponin I High Sensitivity 342 *H </=54 ng/L Triglycerides Level 138 < 150 mg/dL Cholesterol Level 169 < 200 mg/dL LDL Cholesterol 112 H < 100 mg/dL HDL Cholesterol 39 L 40-59 mg/dL White Blood Count 9.4 4.4-10.8 10^3/uL Red Blood Count 5.35 4.5-5.90 10^6/uL Hemoglobin 16.2 13.5-17.5 g/dL Hematocrit 49.2 41.0-53.0 % Mean Corpuscular Volume 92.0 80.0-100.0 fL Mean Corpuscular Hemoglobin 30.4 28.0-32.0 pg Mean Corpuscular Hemoglobin Concent 33.0 32.0-36.0 g/dL Red Cell Distribution Width 17.0 H 11.8-14.3 % Platelet Count 226 140-450 10^3/uL Mean Platelet Volume 9.9 6.9-10.8 fL Neutrophils (%) (Auto) 64.5 37.0-80.0 % Lymphocytes (%) (Auto) 23.0 10.0-50.0 % Monocytes (%) (Auto) 10.2 0.0-12.0 % Eosinophils (%) (Auto) 1.2 0.0-7.0 % Basophils (%) (Auto) 1.1 0.0-2.0 % Neutrophils # (Auto) 6.1 1.6-8.6 10 ^3/uL Lymphocytes # (Auto) 2.2 0.4-5.4 10 ^3/uL Monocytes # (Auto) 1.0 0-1.3 10 ^3/uL Eosinophils # (Auto) 0.1 0-0.8 10 ^3/uL Basophils # (Auto) 0.1 0-0.2 10 ^3/uL Nucleated Red Blood Cells 0.2 % Sodium Level 142 136-145 mmol/L Potassium Level 3.9 3.5-5.1 mmol/L Chloride Level 107 98-107 mmol/L Carbon Dioxide Level 24 20-31 mmol/L Anion Gap 11 5-15 Blood Urea Nitrogen 14 9-23 mg/dL Creatinine 1.11 0.700-1.30 mg/dL Glomerular Filtration Rate Calc 76 >90 mL/min BUN/Creatinine Ratio 12.6 10.0-20.0 Serum Glucose 115 H 74-106 mg/dL Calcium Level 8.4 L 8.7-10.4 mg/dL Total Bilirubin 1.5 H 0.2-1.0 mg/dL Aspartate Amino Transferase (AST) 60 H 13-40 U/L Alanine Aminotransferase (ALT) 109 H 7-40 U/L Alkaline Phosphatase 86 46-116 U/L Total Protein 7.0 5.7-8.2 g/dL Albumin 4.0 3.2-4.8 g/dL Urine Color Light-yellow Yellow Urine Clarity Clear Clear Urine pH 6.5 5.0-9.0 Urine Specific [place] 1.011 1.001-1.035 Urine Protein Trace H Negative Urine Ketones Negative Negative Urine Blood Negative Negative /uL Urine Nitrite Negative Negative Urine Bilirubin Negative Negative Urine Urobilinogen Normal Negative mg/dL Urine Leukocyte Esterase Negative Negative /uL Urine RBC 1 0 - 3 /hpf Urine Microscopic WBC < 1 0-3 /HPF Urine Squamous Epithelial Cells None seen <5 /hpf Urine Bacteria None seen None Seen /hpf Urine Glucose Normal Normal mg/dL Prothrombin Time 11.2 9.3-11.8 sec Prothrombin Time INR 1.06 0.9-1.15 Activated Partial Thromboplast Time 26.5 24.5-34.5 SEC B-Type Natriuretic Peptide 708.26 0-100 pg/mL Test 06/14/25 09:33 Range/Units Urine Opiates Screen Neg NEGATIVE Urine Fentanyl Screen Neg NEGATIVE Urine Barbiturates Screen Neg NEGATIVE Urine Phencyclidine Screen Neg NEGATIVE Urine Amphetamines Screen Neg NEGATIVE Urine Benzodiazepines Screen Neg NEGATIVE Urine Cocaine Screen Neg NEGATIVE Urine Cannabinoids Screen Pos NEGATIVE Assessment Acute on chronic CHF. NSTEMI likely type 2. HTN. Dyslipidemia. Acute hypoxic respiratory failure, pneumonia, CHF. Medication noncompliance. Plan/Recommendation I agree with your ongoing assessment and care of plan. Patient has been seen by Nelson Viera [employer]YW[employer] INSTALLER on my behalf, him and I discussed the plan with the patient. Continue diuresis with Lasix. Diuresing well overnight, lower extremity edema improved. Continue IV antibiotics. Follow up echo. Ischemic workup in the future once respiratory status improves and pneumonia resolves. Continue on Coreg 12.5 mg p.o. twice daily, BP stable on review. Outpatient sleep study recommended. Additional plan as per the hospital course. Plan discussed with: Patient NYHA Physical activity limitations: Class4(Severe)discomfort Date of Service: Jun 15, 2025 Billing Provider: ROBERT CARRINGTON MD Cardiology Common Codes: [id number] INP/OBS CARE (High), [id number] CARE 30-74 MIN ROBERT CARRINGTON MD Jun 15, 2025 12:29
--- NOTE | 2025-06-15 22:57 | DVHPN2 ---
Reviewed: Care Plan, H&P, Labs, Medications, Previous Orders Changes from previous H/P or p: No Changes General: Per HPI Eyes: No Pain, No Vision change, No Conjunctivae inflammation, No Eyelid inflammation, No Other, No Redness ENT: No Ear pain, No Ear discharge, No Nose pain, No Nose discharge, No Nose congestion, No Mouth pain, No Mouth swelling, No Throat pain, No Throat swelling, No Other Cardiovascular: No Chest Pain, No Palpitations, No Orthopnea, No Paroxysmal Noc. Dyspnea, No Edema, No Lt Headedness, No Other Respiratory: No Cough, No Dry; Shortness of breath; No SOB with excertion, No Wheezing, No Hemoptysis, No Pleuritic Pain, No Sputum; Other (SOB at rest) Gastrointestinal: No Nausea, No Vomiting, No Abdominal Pain, No Diarrhea, No Constipation, No Melena, No Hematochezia, No Other Genitourinary: No Dysuria, No Frequency, No Incontinence, No Hematuria, No Retention, No Other Musculoskeletal: No other, No neck pain, No shoulder pain, No arm pain, No back pain, No hand pain, No leg pain, No foot pain Skin: No Rash, No Lesions, No Jaundice, No Bruising, No Other Objective Vitals Vital Signs Date Time Temp Pulse Resp B/P (MAP) Pulse Ox O2 Delivery O2 Flow Rate FiO2 06/15/25 22:14 77 123/88 06/15/25 21:00 97.9 19 98 97.9 06/15/25 19:18 Nasal Cannula 4.0 06/15/25 19:18 36 Intake/Output Intake and Output 06/15/25 07:00 Intake Total 100 ml Output Total 200 ml Balance -100 ml IV Total 100 ml Output Urine Total 200 ml Medications Current Medications Medications Dose Ordered Sig/Quintin Route Start Time Stop Time Status Last Admin Dose Admin Furosemide 40 mg DAILY IV 06/15/25 10:00 06/15/25 08:51 40 MG Aspirin 81 mg DAILY PO 06/15/25 10:00 06/15/25 08:50 81 MG Ceftriaxone Sodium 50 ml @ 100 mls/hr DAILY@09 IV 06/15/25 09:00 06/15/25 08:49 100 MLS/HR Carvedilol 12.5 mg Q12HR PO 06/14/25 22:00 06/15/25 22:14 12.5 MG Clonidine HCl 0.1 mg Q4HP PRN PO 06/14/25 19:45 Levalbuterol HCl 0.625 mg Q6HR NEB 06/15/25 00:00 06/15/25 19:18 0.625 MG Sodium Chloride 10 ml Q8HR IV 06/14/25 22:00 06/15/25 22:14 10 ML Acetaminophen/ Hydrocodone Bitart 1 tab Q4HP PRN PO 06/14/25 19:45 Ondansetron HCl 4 mg Q4HP PRN IV 06/14/25 19:45 Docusate Sodium 100 mg BIDPRN PRN PO 06/14/25 19:45 Acetaminophen 650 mg Q6HP PRN PO 06/14/25 19:45 Nitroglycerin 0.4 mg Q5MINP PRN SL 06/14/25 21:15 Morphine Sulfate 2 mg Q30M PRN IV 06/14/25 21:15 Laboratory Results Laboratory Tests 06/15/25 03:17 Chemistry Test 06/15/25 03:17 Albumin 4.0 g/dL (3.2-4.8) Calcium Level 8.4 mg/dL (8.7-10.4) L Total Protein 7.0 g/dL (5.7-8.2) Lipid panel Test 06/15/25 06:55 Cholesterol Level 169 mg/dL (< 200) HDL Cholesterol 39 mg/dL (40-59) L Triglycerides Level 138 mg/dL (< 150) LFT Test 06/15/25 03:17 Alanine Aminotransferase (ALT) 109 U/L (7-40) H Alkaline Phosphatase 86 U/L (46-116) Aspartate Amino Transferase (AST) 60 U/L (13-40) H Total Bilirubin 1.5 mg/dL (0.2-1.0) H Urinalysis Test 06/14/25 18:49 Urine Color Light-yellow (Yellow) Urine Clarity Clear (Clear) Urine pH 6.5 (5.0-9.0) Urine Specific [place] 1.011 (1.001-1.035) Urine Protein Trace (Negative) H Urine Ketones Negative (Negative) Urine Blood Negative /uL (Negative) Urine Nitrite Negative (Negative) Urine Bilirubin Negative (Negative) Urine Urobilinogen Normal mg/dL (Negative) Urine Leukocyte Esterase Negative /uL (Negative) Urine RBC 1 /hpf (0 - 3) Urine Microscopic WBC < 1 /HPF (0-3) Urine Squamous Epithelial Cells None seen /hpf (<5) Urine Bacteria None seen /hpf (None Seen) Urine Glucose Normal mg/dL (Normal) Assessment/Plan Assessment/Plan The patient is a 59 year male with past medical history of anemia, CHF, and hypertension who presented to [facility] ED with complaint of shortness of breaths. Patient reports he has been off of Lasix for the past 2 months, developed bilateral lower extremity swelling, increased work of breathing, getting worse today that prompted this visit. Patient was seen and evaluated in the ED, laboratory data shows WBC 7.8, platelets 220, sodium 142, potassium 4.1, BUN 16, creatinine 1.08, glucose 113, calcium 8.6, AST 63, ALT 117, troponin 482, BNP 708.26, blood pressure 167/123 trending down to 141/111, heart rate 100, temperature 98.4 F, O2 saturation 95% on oxygen. Chest x-ray revealing bilateral patchy airspace opacities, pulmonary vasculature is prominent, small bilateral pleural effusion, left greater than right, there is no pneumothorax..Patient was started on IV Lasix, please see medication orders section in the computer. On my assessment, patient denied chest pain, no headache, dizziness, Acute exacerbation of congestive heart failure: continue with diuresis Elevated troponin Hypertensive urgency Generalized weakness Acute systolic HF NSTEMI likely type 2 Cardiomyopathy HTN Dyslipidemia: on home meds Acute hypoxic respiratory failure, pneumonia: continue with Abx PNA JASKARAN NSVT Elevated LFTs Plan discussed with: Patient Date of Service: Jun 15, 2025 Billing Provider: MICAH GIBBS DO Common Visit Codes: [id number] INP/OBS CARE(HIGH) MICAH GIBBS DO Jun 15, 2025 22:57
[2025-06-16] VITALS (19 sets, daily range): BP systolic 100–126; BP diastolic 64–92; PULSE 73–89; RESP 15–20; TEMP 97.1–98.4; O2SAT 93–100
[2025-06-16 09:08] LABS: Hematocrit 50.3 % (41.0-53.0); Hemoglobin 16.3 g/dL (13.5-17.5); Mean Corpuscular Hemoglobin 30.0 pg (28.0-32.0); Mean Corpuscular Volume 92.5 fL (80.0-100.0); Nucleated Red Blood Cells % 0.1 %
[2025-06-16 09:27] LABS: Albumin 4.0 g/dL (3.2-4.8); Alkaline Phosphatase 92 U/L (46-116); Anion Gap 9 (5-15); BUN/Creatinine Ratio 23.1 (10.0-20.0); Calcium 8.9 mg/dL (8.7-10.4); Carbon Dioxide 29 mmol/L (20-31); Chloride 101 mmol/L (98-107); Magnesium 2.5 mg/dL (1.6-2.6); Potassium 4.5 mmol/L (3.5-5.1); Sodium 139 mmol/L (136-145); Total Protein 6.8 g/dL (5.7-8.2)
[2025-06-16 09:29] LABS: Alanine Aminotransferase 128 U/L (7-40); Bilirubin, Total 1.5 mg/dL (0.2-1.0); Blood Urea Nitrogen 28 mg/dL (9-23); Glucose 173 mg/dL (74-106)
--- NOTE | 2025-06-16 13:52 | DVHPN2 ---
Consult Progress Note Subjective Patient reports: No new complaints Review of Systems: CVS:Normal (Denies CP, Palpitaitons), RESPIRATORY:Abnormal (SOB at rest) Objective vital signs Vital Sign Date Time Temp Pulse Resp B/P (MAP) Pulse Ox O2 Delivery O2 Flow Rate FiO2 06/16/25 12:55 98.4 77 19 100/64 (76) 93 98.4 06/16/25 11:28 Nasal Cannula* 4 36 Total Intake and Output 06/15/25 06/15/25 06/16/25 15:00 23:00 07:00 Intake Total 50 ml 1445 ml 1250 ml Output Total 1100 ml Balance 50 ml 1445 ml 150 ml medications Current Medications Medications Dose Ordered Sig/Quintin Route Start Time Stop Time Status Last Admin Dose Admin Furosemide 40 mg DAILY IV 06/15/25 10:00 06/16/25 10:47 40 MG Aspirin 81 mg DAILY PO 06/15/25 10:00 06/16/25 10:47 81 MG Ceftriaxone Sodium 50 ml @ 100 mls/hr DAILY@09 IV 06/15/25 09:00 06/16/25 10:48 100 MLS/HR Carvedilol 12.5 mg Q12HR PO 06/14/25 22:00 06/16/25 10:47 12.5 MG Clonidine HCl 0.1 mg Q4HP PRN PO 06/14/25 19:45 Levalbuterol HCl 0.625 mg Q6HR NEB 06/15/25 00:00 06/16/25 11:28 0.625 MG Sodium Chloride 10 ml Q8HR IV 06/14/25 22:00 06/16/25 05:51 10 ML Acetaminophen/ Hydrocodone Bitart 1 tab Q4HP PRN PO 06/14/25 19:45 Ondansetron HCl 4 mg Q4HP PRN IV 06/14/25 19:45 Docusate Sodium 100 mg BIDPRN PRN PO 06/14/25 19:45 Acetaminophen 650 mg Q6HP PRN PO 06/14/25 19:45 Nitroglycerin 0.4 mg Q5MINP PRN SL 06/14/25 21:15 Morphine Sulfate 2 mg Q30M PRN IV 06/14/25 21:15 Examination: LUNGS:Abnormal (Rhonchi, diminished. On 4L NC) laboratory and microbiology Laboratory Tests 06/16/25 08:27 11/16/25 08:24 Test 06/16/25 08:24 Range/Units Serum Glucose 173 H 74-106 mg/dL Problem List/Assessment/Plan Problem List/Assessment/Plan Assessment * Acute systolic HF - continue diuresis with IV Lasix. Diuresing well overnight, lower extremity edema improved. Patient with EF of 15%, severe LV and RV global hypokinesis, moderate MR and TR and AI. RVSP 63 mmHg. * NSTEMI likely type 2 - denies chest pain. EKG negative for acute ischemic changes. Continue on aspirin and statin. EF 15% on echo. Patient will need ischemic workup once breathing stable and infection with pneumonia clears as patient is able to lay flat. * Cardiomyopathy - GDMT as tolerated. Coreg 6.25 mg p.o. twice daily, low-dose losartan given marginal BP. Lasix which to 40 mg p.o. daily Aldactone 12.5 mg p.o. daily added. Titrate as tolerated * HTN - continue current regimen, titrate as tolerated. * Dyslipidemia- statin. * Acute hypoxic respiratory failure, pneumonia, CHF - continue IV antibiotics. Continue diuresing. * Medication noncompliance - strongly advised compliance. * JASKARAN - Outpatient sleep study recommended. * NSVT - continue Coreg. Monitoring replace electrolytes. Continue with plan for ischemic workup once breathing stabilizes * Elevated LFTs - GI on board Case Discussed with Dr Lozada. Patient with EF 15%. Patient had 13 beat NSVT overnight. Continue on Coreg, monitor and replace electrolytes with diuresis. EF of 15% with severe LV and RV global hypokinesis. Plan for ischemic workup once breathing stabilizes. Patient sees more euvolemic, BUN and creatinine trending up, we will switch IV Lasix to p.o. starting tomorrow. Continued on IV antibiotics for pneumonia. Critical care, time spent: 37 minutes This medical document was created using an electronic medical record system with voice recognition software and computerized dictation system. Although this document has been carefully reviewed, there might still be some phonetic and typographical errors. Occasional wrong-word or ``sound-alike substitutions may have occurred due to the inherent limitations of voice recognition software. These areas are purely typographical due to imperfections of the software programs and do not reflect any compromise in the patient's medical care. Please read the chart carefully and recognize, using context, where these substitutions have occurred. Thank you for allowing me to participate in the management of this patient. The treatment plan was discussed with and agreed upon by patient/family including requesting consultants and ordering of imaging/procedures. Plan discussed with: Patient Date of Service: Jun 16, 2025 Billing Provider: FREDDIE CHENEY Common Visit Codes: [id number] INP/OBS CARE(HIGH), [id number] CARE 30-74 MIN FREDDIE CHENEY Jun 16, 2025 13:52
--- NOTE | 2025-06-16 17:28 | DVHPN2 ---
Progress Note - Dictate Date Seen: Jun 16, 2025 Medical Necessity Reason Pt with a Central, PICC or Fol: No Subjective No gross bleeding seen at this time complaints of weakness and some shortness of breath vital signs Vital Sign Date Time Temp Pulse Resp B/P (MAP) Pulse Ox O2 Delivery O2 Flow Rate FiO2 06/16/25 16:49 97.1 81 16 126/92 (103) 98 97.1 06/16/25 11:28 Nasal Cannula* 4 36 Total Intake and Output 06/15/25 06/15/25 06/16/25 15:00 23:00 07:00 Intake Total 50 ml 1445 ml 1250 ml Output Total 1100 ml Balance 50 ml 1445 ml 150 ml medications Current Medications Medications Dose Ordered Sig/Quintin Route Start Time Stop Time Status Last Admin Dose Admin Aspirin 81 mg DAILY PO 06/15/25 10:00 06/16/25 10:47 81 MG Ceftriaxone Sodium 50 ml @ 100 mls/hr DAILY@09 IV 06/15/25 09:00 06/16/25 10:48 100 MLS/HR Clonidine HCl 0.1 mg Q4HP PRN PO 06/14/25 19:45 Levalbuterol HCl 0.625 mg Q6HR NEB 06/15/25 00:00 06/16/25 11:28 0.625 MG Sodium Chloride 10 ml Q8HR IV 06/14/25 22:00 06/16/25 14:45 10 ML Acetaminophen/ Hydrocodone Bitart 1 tab Q4HP PRN PO 06/14/25 19:45 Ondansetron HCl 4 mg Q4HP PRN IV 06/14/25 19:45 Docusate Sodium 100 mg BIDPRN PRN PO 06/14/25 19:45 Acetaminophen 650 mg Q6HP PRN PO 06/14/25 19:45 Nitroglycerin 0.4 mg Q5MINP PRN SL 06/14/25 21:15 Morphine Sulfate 2 mg Q30M PRN IV 06/14/25 21:15 Carvedilol 6.25 mg Q12HR PO 06/16/25 22:00 Furosemide 40 mg DAILY PO 06/17/25 10:00 Spironolactone 12.5 mg DAILY PO 06/17/25 10:00 Losartan Potassium 12.5 mg DAILY PO 06/17/25 10:00 objective Abdomen is soft nontender no masses no gross bleed laboratory and microbiology Laboratory Tests 06/16/25 08:27 06/16/25 08:24 Test 06/16/25 08:24 Range/Units Serum Glucose 173 H 74-106 mg/dL Assessment/Plan 59-year-old male with congestive heart failure anemia with abnormal liver enzymes obesity. Possibility of maybe the cardiac liver enzymes apparently congestive heart failure of the possibility of mesh MASLD or PERALES can not be excluded Hemoglobin is stable now We will recommend to follow the hemoglobin and we will recommend GI workup as an outpatient if anemia persist especially Thank you Dr. Carolina Pollard discussed with: Patient REYES RG MD Jun 16, 2025 17:28
--- NOTE | 2025-06-16 21:26 | DVHPN2 ---
Consult Progress Note Subjective Patient reports: No new complaints Review of Systems: CVS:Normal (Denies CP, Palpitaitons), RESPIRATORY:Abnormal (SOB at rest) Other Systems: Patient was seen and evaluated in follow up. Patient is short of breath. He is on 4 LPM NC. BUN 28, AST 72, ALT 128, TROP 292. Telemetry reviewed. Objective vital signs Vital Sign Date Time Temp Pulse Resp B/P (MAP) Pulse Ox O2 Delivery O2 Flow Rate FiO2 06/16/25 12:55 98.4 77 19 100/64 (76) 93 98.4 06/16/25 11:28 Nasal Cannula* 4 36 Total Intake and Output 06/15/25 06/15/25 06/16/25 15:00 23:00 07:00 Intake Total 50 ml 1445 ml 1250 ml Output Total 1100 ml Balance 50 ml 1445 ml 150 ml medications Current Medications Medications Dose Ordered Sig/Quintin Route Start Time Stop Time Status Last Admin Dose Admin Aspirin 81 mg DAILY PO 06/15/25 10:00 06/16/25 10:47 81 MG Ceftriaxone Sodium 50 ml @ 100 mls/hr DAILY@09 IV 06/15/25 09:00 06/16/25 10:48 100 MLS/HR Clonidine HCl 0.1 mg Q4HP PRN PO 06/14/25 19:45 Levalbuterol HCl 0.625 mg Q6HR NEB 06/15/25 00:00 06/16/25 11:28 0.625 MG Sodium Chloride 10 ml Q8HR IV 06/14/25 22:00 06/16/25 14:45 10 ML Acetaminophen/ Hydrocodone Bitart 1 tab Q4HP PRN PO 06/14/25 19:45 Ondansetron HCl 4 mg Q4HP PRN IV 06/14/25 19:45 Docusate Sodium 100 mg BIDPRN PRN PO 06/14/25 19:45 Acetaminophen 650 mg Q6HP PRN PO 06/14/25 19:45 Nitroglycerin 0.4 mg Q5MINP PRN SL 06/14/25 21:15 Morphine Sulfate 2 mg Q30M PRN IV 06/14/25 21:15 Carvedilol 6.25 mg Q12HR PO 06/16/25 22:00 Furosemide 40 mg DAILY PO 06/17/25 10:00 Spironolactone 12.5 mg DAILY PO 06/17/25 10:00 Losartan Potassium 12.5 mg DAILY PO 06/17/25 10:00 Examination: GENERAL:Normal, HEENT:Normal, NECK:Normal, LUNGS:Abnormal (Rhonchi, diminished), CVS:Normal, ABDOMEN:Normal, MSK:Normal, SKIN:Normal laboratory and microbiology Laboratory Tests 06/16/25 08:27 06/16/25 08:24 Test 06/16/25 08:24 Range/Units Serum Glucose 173 H 74-106 mg/dL Problem List/Assessment/Plan Problem List/Assessment/Plan Assessment Acute on chronic CHF. NSTEMI likely type 2. HTN. Dyslipidemia. Acute hypoxic respiratory failure, pneumonia, CHF. Medication noncompliance. Plan/Recommendation Continued all current supportive medical care. Patient has been seen by Nelson Viera LEATHER ETCHER on my behalf, him and I discussed the plan with the patient. Continue diuresis with Lasix. Diuresing well overnight, lower extremity edema improved. Continue IV antibiotics. Follow up echo. Ischemic workup in the future once respiratory status improves and pneumonia resolves. Continue on Coreg 12.5 mg p.o. twice daily, BP stable on review. Outpatient sleep study recommended. Patient with EF 15%. Patient had 13 beat NSVT overnight. Continue on Coreg, monitor and replace electrolytes with diuresis. EF of 15% with severe LV and RV global hypokinesis. Plan for ischemic workup once breathing stabilizes. Patient sees more euvolemic, BUN and creatinine trending up, we will switch IV Lasix to p.o. starting tomorrow. Continued on IV antibiotics for pneumonia. Additional plan as per the hospital course. Plan discussed with: Patient Date of Service: Jun 16, 2025 Billing Provider: ROBERT CARRINGTON MD Common Visit Codes: [id number] INP/OBS CARE(HIGH), [id number] CARE 30-74 MIN ROBERT CARRINGTON MD Jun 16, 2025 15:47
[2025-06-16] MEDS: CARVEDILOL 3.125 MG TAB PO SCH (21:51)
[2025-06-17] VITALS (16 sets, daily range): BP systolic 106–130; BP diastolic 65–86; PULSE 69–89; RESP 16–24; TEMP 97.3–98; O2SAT 94–100
--- NOTE | 2025-06-17 02:05 | DVHPN2 ---
Reviewed: Care Plan, H&P, Labs, Medications, Previous Orders Changes from previous H/P or p: No Changes General: Per HPI Eyes: No Pain, No Vision change, No Conjunctivae inflammation, No Eyelid inflammation, No Other, No Redness ENT: No Ear pain, No Ear discharge, No Nose pain, No Nose discharge, No Nose congestion, No Mouth pain, No Mouth swelling, No Throat pain, No Throat swelling, No Other Cardiovascular: No Chest Pain, No Palpitations, No Orthopnea, No Paroxysmal Noc. Dyspnea, No Edema, No Lt Headedness, No Other Respiratory: No Cough, No Dry; Shortness of breath; No SOB with excertion, No Wheezing, No Hemoptysis, No Pleuritic Pain, No Sputum; Other (SOB at rest) Gastrointestinal: No Nausea, No Vomiting, No Abdominal Pain, No Diarrhea, No Constipation, No Melena, No Hematochezia, No Other Genitourinary: No Dysuria, No Frequency, No Incontinence, No Hematuria, No Retention, No Other Musculoskeletal: No other, No neck pain, No shoulder pain, No arm pain, No back pain, No hand pain, No leg pain, No foot pain Skin: No Rash, No Lesions, No Jaundice, No Bruising, No Other Objective Vitals Vital Signs Date Time Temp Pulse Resp B/P (MAP) Pulse Ox O2 Delivery O2 Flow Rate FiO2 06/17/25 01:00 98.0 77 19 130/81 (97) 97 98.0 06/16/25 20:00 Nasal Cannula* 4 36 Intake/Output Intake and Output 06/17/25 07:00 Intake Total 1145 ml Output Total 1100 ml Balance 45 ml Intake Oral 1095 ml IV Total 50 ml Output Urine Total 1100 ml # Voids 8 # Bowel Movements 1 General Appearance: Alert, Oriented X3, Cooperative Cardiovascular: Regular rate, Normal S1, Normal S2 Medications Current Medications Medications Dose Ordered Sig/Quintin Route Start Time Stop Time Status Last Admin Dose Admin Aspirin 81 mg DAILY PO 06/15/25 10:00 06/16/25 10:47 81 MG Ceftriaxone Sodium 50 ml @ 100 mls/hr DAILY@09 IV 06/15/25 09:00 06/16/25 10:48 100 MLS/HR Clonidine HCl 0.1 mg Q4HP PRN PO 06/14/25 19:45 Levalbuterol HCl 0.625 mg Q6HR NEB 06/15/25 00:00 06/16/25 23:35 0.625 MG Sodium Chloride 10 ml Q8HR IV 06/14/25 22:00 06/16/25 21:53 10 ML Acetaminophen/ Hydrocodone Bitart 1 tab Q4HP PRN PO 06/14/25 19:45 Ondansetron HCl 4 mg Q4HP PRN IV 06/14/25 19:45 Docusate Sodium 100 mg BIDPRN PRN PO 06/14/25 19:45 Acetaminophen 650 mg Q6HP PRN PO 06/14/25 19:45 Nitroglycerin 0.4 mg Q5MINP PRN SL 06/14/25 21:15 Morphine Sulfate 2 mg Q30M PRN IV 06/14/25 21:15 Carvedilol 6.25 mg Q12HR PO 06/16/25 22:00 06/16/25 21:51 6.25 MG Furosemide 40 mg DAILY PO 06/17/25 10:00 Spironolactone 12.5 mg DAILY PO 06/17/25 10:00 Losartan Potassium 12.5 mg DAILY PO 06/17/25 10:00 Laboratory Results Laboratory Tests 06/16/25 08:24 06/16/25 08:27 Chemistry Test 06/16/25 08:24 Albumin 4.0 g/dL (3.2-4.8) Calcium Level 8.9 mg/dL (8.7-10.4) Magnesium Level 2.5 mg/dL (1.6-2.6) Total Protein 6.8 g/dL (5.7-8.2) LFT Test 06/16/25 08:24 Alanine Aminotransferase (ALT) 128 U/L (7-40) H Alkaline Phosphatase 92 U/L (46-116) Aspartate Amino Transferase (AST) 72 U/L (13-40) H Total Bilirubin 1.5 mg/dL (0.2-1.0) H Urinalysis Test 06/14/25 18:49 Urine Color Light-yellow (Yellow) Urine Clarity Clear (Clear) Urine pH 6.5 (5.0-9.0) Urine Specific [place] 1.011 (1.001-1.035) Urine Protein Trace (Negative) H Urine Ketones Negative (Negative) Urine Blood Negative /uL (Negative) Urine Nitrite Negative (Negative) Urine Bilirubin Negative (Negative) Urine Urobilinogen Normal mg/dL (Negative) Urine Leukocyte Esterase Negative /uL (Negative) Urine RBC 1 /hpf (0 - 3) Urine Microscopic WBC < 1 /HPF (0-3) Urine Squamous Epithelial Cells None seen /hpf (<5) Urine Bacteria None seen /hpf (None Seen) Urine Glucose Normal mg/dL (Normal) Labs and/or images reviewed: Labs reviewed by me, Image(s) reviewed by me Assessment/Plan Assessment/Plan The patient is a 59 year male with past medical history of anemia, CHF, and hypertension who presented to [facility] ED with complaint of shortness of breaths. Patient reports he has been off of Lasix for the past 2 months, developed bilateral lower extremity swelling, increased work of breathing, getting worse today that prompted this visit. Patient was seen and evaluated in the ED, laboratory data shows WBC 7.8, platelets 220, sodium 142, potassium 4.1, BUN 16, creatinine 1.08, glucose 113, calcium 8.6, AST 63, ALT 117, troponin 482, BNP 708.26, blood pressure 167/123 trending down to 141/111, heart rate 100, temperature 98.4 F, O2 saturation 95% on oxygen. Chest x-ray revealing bilateral patchy airspace opacities, pulmonary vasculature is prominent, small bilateral pleural effusion, left greater than right, there is no pneumothorax..Patient was started on IV Lasix, please see medication orders section in the computer. On my assessment, patient denied chest pain, no headache, dizziness, Acute exacerbation of congestive heart failure: continue with diuresis Elevated troponin Hypertensive urgency Generalized weakness Acute systolic HF NSTEMI likely type 2 Cardiomyopathy HTN Dyslipidemia: on home meds Acute hypoxic respiratory failure, pneumonia: continue with Abx PNA JASKARAN NSVT Elevated LFTs Plan discussed with: Patient Date of Service: Jun 17, 2025 Billing Provider: MICAH GIBBS DO Common Visit Codes: [id number] INP/OBS CARE(HIGH) MICAH GIBBS DO Jun 17, 2025 02:05
[2025-06-17] MEDS: TEMAZEPAM 15 MG CAP PO ONE (02:22)
--- NOTE | 2025-06-17 09:32 | ECG ---
[facility] Test Date: 2025-06-14 Test Time: 18:30:31 Pat Name: MELISSA NUR Department: ED Room: 0298T B Gender: M System Administrator: ENOCH : 1965 Requested By: COURT MILLER Order Number: [id number] Reading MD: Pranav Gaspar Measurements Intervals [place] Rate: 105 P: 48 MA: 157 QRS: 17 QRSD: 99 T: 86 QT: 388 QTc: 513 Interpretive Statements Sinus tachycardia Biatrial enlargement Borderline T abnormalities, lateral leads Prolonged QT interval Electronically Signed On 06-18-2025 17:45:51 PST by Pranav Gaspar Please click the below link to view image of tracing.
[2025-06-17] MEDS: LOSARTAN POTASSIUM 25 MG TAB PO SCH (09:53)
[2025-06-17] MEDS: SPIRONOLACTONE 25 MG TAB PO SCH (09:53)
[2025-06-17] MEDS: FUROSEMIDE 40 MG TAB PO SCH (09:54)
--- NOTE | 2025-06-17 13:41 | DVHPN2 ---
Consult Progress Note Date Seen: Jun 17, 2025 Subjective Review of Systems: CVS:Normal, RESPIRATORY:Abnormal, NEURO:Normal Other Systems: C/o mild SOB, improving Objective vital signs Vital Sign Date Time Temp Pulse Resp B/P (MAP) Pulse Ox O2 Delivery O2 Flow Rate FiO2 06/17/25 12:47 73 16 100 06/17/25 10:21 Nasal Cannula* 4 36 06/17/25 09:54 119/72 06/17/25 09:00 97.6 97.6 Total Intake and Output 06/16/25 06/16/25 06/17/25 15:00 23:00 07:00 Intake Total 50 ml 1095 ml 900 ml Output Total 1100 ml 650 ml Balance 50 ml -5 ml 250 ml medications Current Medications Medications Dose Ordered Sig/Quintin Route Start Time Stop Time Status Last Admin Dose Admin Aspirin 81 mg DAILY PO 06/15/25 10:00 06/17/25 09:53 81 MG Ceftriaxone Sodium 50 ml @ 100 mls/hr DAILY@09 IV 06/15/25 09:00 06/17/25 09:53 100 MLS/HR Clonidine HCl 0.1 mg Q4HP PRN PO 06/14/25 19:45 Levalbuterol HCl 0.625 mg Q6HR NEB 06/15/25 00:00 06/17/25 12:41 0.625 MG Sodium Chloride 10 ml Q8HR IV 06/14/25 22:00 06/17/25 05:38 10 ML Acetaminophen/ Hydrocodone Bitart 1 tab Q4HP PRN PO 06/14/25 19:45 Ondansetron HCl 4 mg Q4HP PRN IV 06/14/25 19:45 Docusate Sodium 100 mg BIDPRN PRN PO 06/14/25 19:45 Acetaminophen 650 mg Q6HP PRN PO 06/14/25 19:45 Nitroglycerin 0.4 mg Q5MINP PRN SL 06/14/25 21:15 Morphine Sulfate 2 mg Q30M PRN IV 06/14/25 21:15 Carvedilol 6.25 mg Q12HR PO 06/16/25 22:00 06/17/25 09:53 6.25 MG Furosemide 40 mg DAILY PO 06/17/25 10:00 06/17/25 09:54 40 MG Spironolactone 12.5 mg DAILY PO 06/17/25 10:00 06/17/25 09:53 12.5 MG Losartan Potassium 12.5 mg DAILY PO 06/17/25 10:00 06/17/25 09:53 12.5 MG Examination: LUNGS:Abnormal (Bibasilar crackles), CVS:Abnormal (monitor worker reviewed with no further NSVT events), NEURO:Normal laboratory and microbiology Laboratory Tests 06/16/25 08:27 06/16/25 08:24 Test 06/16/25 08:24 Range/Units Serum Glucose 173 H 74-106 mg/dL Problem List/Assessment/Plan Problem List/Assessment/Plan Assessment/Plan (Dr. Lozada) * Acute on chronic decompensated systolic HF - EF of 15%, severe LV and RV global hypokinesis, moderate MR and TR and AI. RVSP 63 mmHg. Continue preload and afterload reduction as tolerated. Initiate full GDMT for CHF and titrate as tolerated * Ischemic vs non-ischemic cardiomyopathy - Scheduled for cardiac catheterization with coronary angiogram on 06/19/25 * NSVT up to 13 sec- continue Coreg. Monitoring replace electrolytes. Continue with plan for ischemic workup once breathing stabilizes * NSTEMI likely type 2 - denies chest pain. EKG negative for acute ischemic changes. Continue on aspirin. * HTN - continue current regimen, titrate as tolerated. * Dyslipidemia- statin held given LFTs * Acute hypoxic respiratory failure, pneumonia, CHF - continue IV antibiotics. Continue diuresing. * JASKARAN - Outpatient sleep study recommended. * Medication noncompliance - strongly advised compliance. Scheduled for left cardiac catheterization and coronary angiogram with Dr. Lozada on 06/19/2025. All risks and benefits of the procedure were discussed in full detail. Thank you for allowing me to participate in the management of this patient. This medical document was created using an electronic medical record system with voice recognition software and computerized dictation system. Although this document has been carefully reviewed, there might still be some phonetic and typographical errors. Occasional wrong-word or ``sound-alike substitutions may have occurred due to the inherent limitations of voice recognition software. These areas are purely typographical due to imperfections of the software programs and do not reflect any compromise in the patient's medical care. Please read the chart carefully and recognize, using context, where these substitutions have occurred. Plan discussed with: Patient, Other Date of Service: Jun 17, 2025 Billing Provider: SHITAL BELL Cardiology Common Codes: [id number] HOSP CARE(High SHITAL BELL Jun 17, 2025 13:41
--- NOTE | 2025-06-17 14:14 | DVH ---
CHEST RADIOGRAPH Indication: Acute CHF Technique: Single frontal view of the chest was obtained Comparison: XY CHEST PORTABLE on DOS: 06/14/25 FINDINGS: Lines and Tubes: None Lungs: Appearance of the lung ritchie is not significantly changed from 06/14/2025 Pleura: No effusion. No pneumothorax. Cardiomediastinal contours: Cardiac size is enlarged but stable when compared to 06/14/2025. Bones: No acute osseous abnormality. IMPRESSION: 1. No significant change from 06/14/2025
[2025-06-17] MEDS: FUROSEMIDE 40 MG/4 ML VIAL IV SCH (17:02)
--- NOTE | 2025-06-17 23:34 | DVHPN2 ---
Consult Progress Note Date Seen: Jun 17, 2025 Subjective Review of Systems: CVS:Normal, RESPIRATORY:Abnormal, NEURO:Normal Other Systems: Patient was seen and evaluated in follow up. Patient reports mild, SOB, which is improving. Patient is on 3 LPM NC. BNP 434.86. HGB A1c 6.0. Chest x-ray shows no significant change from 06/14/2025 Telemetry reviewed. Objective vital signs Vital Sign Date Time Temp Pulse Resp B/P (MAP) Pulse Ox O2 Delivery O2 Flow Rate FiO2 06/17/25 21:02 80 122/87 06/17/25 21:00 97.3 18 96 97.3 06/17/25 18:30 Nasal Cannula* 3 32 Total Intake and Output 06/16/25 06/16/25 06/17/25 15:00 23:00 07:00 Intake Total 50 ml 1095 ml 900 ml Output Total 1100 ml 650 ml Balance 50 ml -5 ml 250 ml medications Current Medications Medications Dose Ordered Sig/Quintin Route Start Time Stop Time Status Last Admin Dose Admin Aspirin 81 mg DAILY PO 06/15/25 10:00 06/17/25 09:53 81 MG Ceftriaxone Sodium 50 ml @ 100 mls/hr DAILY@09 IV 06/15/25 09:00 06/17/25 09:53 100 MLS/HR Clonidine HCl 0.1 mg Q4HP PRN PO 06/14/25 19:45 Levalbuterol HCl 0.625 mg Q6HR NEB 06/15/25 00:00 06/17/25 18:34 0.625 MG Sodium Chloride 10 ml Q8HR IV 06/14/25 22:00 06/17/25 21:03 10 ML Acetaminophen/ Hydrocodone Bitart 1 tab Q4HP PRN PO 06/14/25 19:45 Ondansetron HCl 4 mg Q4HP PRN IV 06/14/25 19:45 Docusate Sodium 100 mg BIDPRN PRN PO 06/14/25 19:45 Acetaminophen 650 mg Q6HP PRN PO 06/14/25 19:45 Nitroglycerin 0.4 mg Q5MINP PRN SL 06/14/25 21:15 Morphine Sulfate 2 mg Q30M PRN IV 06/14/25 21:15 Carvedilol 6.25 mg Q12HR PO 06/16/25 22:00 06/17/25 21:02 6.25 MG Spironolactone 12.5 mg DAILY PO 06/17/25 10:00 06/17/25 09:53 12.5 MG Losartan Potassium 12.5 mg DAILY PO 06/17/25 10:00 06/17/25 09:53 12.5 MG Furosemide 40 mg BIDD IV 06/17/25 18:00 06/17/25 17:02 40 MG Empaglifozin 10 mg DAILY PO 06/18/25 10:00 Temazepam 15 mg HSPRN PRN PO 06/17/25 18:15 Examination: GENERAL:Normal, HEENT:Normal, NECK:Normal, LUNGS:Abnormal (Bibasilar crackles), CVS:Abnormal (prime minister reviewed with no further NSVT events), SKIN:Normal, NEURO:Normal laboratory and microbiology Laboratory Tests 06/16/25 08:27 06/16/25 08:24 Test 06/16/25 08:24 Range/Units Serum Glucose 173 H 74-106 mg/dL Problem List/Assessment/Plan Problem List/Assessment/Plan Assessment Acute on chronic decompensated systolic HF - EF of 15%, severe LV and RV global hypokinesis, moderate MR and TR and AI. RVSP 63 mmHg. Ischemic vs non-ischemic cardiomyopathy. NSVT up to 13 sec. NSTEMI likely type 2. HTN. Dyslipidemia- statin held given LFTs Acute hypoxic respiratory failure, pneumonia, CHF. JASKARAN. Medication noncompliance. Plan/Recommendation Continued all current supportive medical care. Patient has been seen by Flaquita Iraheta NP on my behalf, him and I discussed the plan with the patient. Continue preload and afterload reduction as tolerated. Initiate full GDMT for CHF and titrate as tolerated. Scheduled for cardiac catheterization with coronary angiogram on 06/19/25. All risks and benefits of the procedure were discussed in full detail. Monitoring replace electrolytes. Continue with plan for ischemic workup once breathing stabilizes. EKG negative for acute ischemic changes. Continue on aspirin. Continue Coreg. Continue current regimen, titrate as tolerated. Outpatient sleep study recommended. Strongly advised medical compliance. Continue IV antibiotics. Continue diuresing. Additional plan as per the hospital course. Plan discussed with: Patient, Other Date of Service: Jun 17, 2025 Billing Provider: ROBERT CARRINGTON MD Cardiology Common Codes: [id number] HOSP CARE(ROBERT Mariscal MD Jun 17, 2025 23:34
[2025-06-18] VITALS (20 sets, daily range): BP systolic 99–134; BP diastolic 52–94; PULSE 63–91; RESP 16–22; TEMP 97.4–98.2; O2SAT 95–100
[2025-06-18] MEDS: TEMAZEPAM 15 MG CAP PO PRN (01:14)
[2025-06-18 07:17] LABS: Hematocrit 53.6 % (41.0-53.0); Nucleated Red Blood Cells % 0.1 %
[2025-06-18 07:19] LABS: Hemoglobin 17.5 g/dL (13.5-17.5); Mean Corpuscular Hemoglobin 30.2 pg (28.0-32.0); Mean Corpuscular Volume 92.4 fL (80.0-100.0)
[2025-06-18 07:46] LABS: Albumin 4.4 g/dL (3.2-4.8); Alkaline Phosphatase 99 U/L (46-116); Anion Gap 9 (5-15); BUN/Creatinine Ratio 18.3 (10.0-20.0); Calcium 9.1 mg/dL (8.7-10.4); Chloride 101 mmol/L (98-107); Potassium 3.9 mmol/L (3.5-5.1); Sodium 142 mmol/L (136-145); Total Protein 7.8 g/dL (5.7-8.2)
[2025-06-18 07:47] LABS: Alanine Aminotransferase 116 U/L (7-40); Bilirubin, Total 1.0 mg/dL (0.2-1.0); Blood Urea Nitrogen 23 mg/dL (9-23); Carbon Dioxide 32 mmol/L (20-31); Glucose 151 mg/dL (74-106)
[2025-06-18] MEDS: EMPAGLIFLOZIN 10 MG TAB PO SCH (09:13)
--- NOTE | 2025-06-18 10:36 | DVHPN2 ---
Consult Progress Note Date Seen: Jun 18, 2025 Subjective Patient reports: Feels better Review of Systems: CVS:Normal, RESPIRATORY:Normal, NEURO:Normal Objective vital signs Vital Sign Date Time Temp Pulse Resp B/P (MAP) Pulse Ox O2 Delivery O2 Flow Rate FiO2 06/18/25 09:13 111/57 06/18/25 09:12 72 06/18/25 09:00 97.9 20 98 97.9 06/18/25 08:00 Nasal Cannula* 3 32 Total Intake and Output 06/17/25 06/17/25 06/18/25 15:00 23:00 07:00 Intake Total 50 ml 880 ml 375 ml Output Total 2275 ml 200 ml Balance 50 ml -1395 ml 175 ml medications Current Medications Medications Dose Ordered Sig/Quintin Route Start Time Stop Time Status Last Admin Dose Admin Aspirin 81 mg DAILY PO 06/15/25 10:00 06/18/25 09:12 81 MG Ceftriaxone Sodium 50 ml @ 100 mls/hr DAILY@09 IV 06/15/25 09:00 06/18/25 09:12 100 MLS/HR Clonidine HCl 0.1 mg Q4HP PRN PO 06/14/25 19:45 Levalbuterol HCl 0.625 mg Q6HR NEB 06/15/25 00:00 06/18/25 06:42 0.625 MG Sodium Chloride 10 ml Q8HR IV 06/14/25 22:00 06/18/25 05:41 10 ML Acetaminophen/ Hydrocodone Bitart 1 tab Q4HP PRN PO 06/14/25 19:45 Ondansetron HCl 4 mg Q4HP PRN IV 06/14/25 19:45 Docusate Sodium 100 mg BIDPRN PRN PO 06/14/25 19:45 Acetaminophen 650 mg Q6HP PRN PO 06/14/25 19:45 Nitroglycerin 0.4 mg Q5MINP PRN SL 06/14/25 21:15 Morphine Sulfate 2 mg Q30M PRN IV 06/14/25 21:15 Carvedilol 6.25 mg Q12HR PO 06/16/25 22:00 06/18/25 09:12 6.25 MG Spironolactone 12.5 mg DAILY PO 06/17/25 10:00 06/18/25 09:13 12.5 MG Losartan Potassium 12.5 mg DAILY PO 06/17/25 10:00 06/18/25 09:13 12.5 MG Furosemide 40 mg BIDD IV 06/17/25 18:00 06/18/25 05:41 40 MG Empaglifozin 10 mg DAILY PO 06/18/25 10:00 06/18/25 09:13 10 MG Temazepam 15 mg HSPRN PRN PO 06/17/25 18:15 06/18/25 01:14 15 MG Examination: LUNGS:Normal, CVS:Normal, NEURO:Normal laboratory and microbiology Laboratory Tests 06/18/25 06:15 Test 06/18/25 06:15 Range/Units Serum Glucose 151 H 74-106 mg/dL Problem List/Assessment/Plan Problem List/Assessment/Plan Assessment/Plan (Dr. Lozada) * Acute on chronic decompensated systolic HF - EF of 15%, severe LV and RV global hypokinesis, moderate MR and TR and AI. RVSP 63 mmHg. Continue preload and afterload reduction as tolerated. Initiate full GDMT for CHF and titrate as tolerated * Ischemic vs non-ischemic cardiomyopathy - Scheduled for cardiac catheterization with coronary angiogram on 06/19/25 * NSVT up to 13 sec- continue Coreg. Monitoring replace electrolytes. Continue with plan for ischemic workup once breathing stabilizes * NSTEMI likely type 2 - denies chest pain. EKG negative for acute ischemic changes. Continue on aspirin. * HTN - continue current regimen, titrate as tolerated. * Dyslipidemia- statin held given LFTs * Acute hypoxic respiratory failure, pneumonia, CHF - continue IV antibiotics. Continue diuresing. * JASKARAN - Outpatient sleep study recommended. * Medication noncompliance - strongly advised compliance. Scheduled for left cardiac catheterization and coronary angiogram with Dr. Lozada on 06/19/2025. Thank you for allowing me to participate in the management of this patient. This medical document was created using an electronic medical record system with voice recognition software and computerized dictation system. Although this document has been carefully reviewed, there might still be some phonetic and typographical errors. Occasional wrong-word or ``sound-alike substitutions may have occurred due to the inherent limitations of voice recognition software. These areas are purely typographical due to imperfections of the software programs and do not reflect any compromise in the patient's medical care. Please read the chart carefully and recognize, using context, where these substitutions have occurred. Plan discussed with: Patient, Other Date of Service: Jun 18, 2025 Billing Provider: SHITAL BELL Cardiology Common Codes: [id number] HOSP CARE(High SHITAL BELL Jun 18, 2025 10:36
--- NOTE | 2025-06-18 23:30 | DVHPN2 ---
Consult Progress Note Date Seen: Jun 18, 2025 Subjective Patient reports: Feels better Review of Systems: CVS:Normal, RESPIRATORY:Normal, NEURO:Normal Other Systems: Patient was seen and evaluated in follow up. Patient complains of mild SOB. Patient is on 2 LPM NC. CO2 32, AST 65, ALT 116. Telemetry reviewed. Objective vital signs Vital Sign Date Time Temp Pulse Resp B/P (MAP) Pulse Ox O2 Delivery O2 Flow Rate FiO2 06/18/25 13:00 97.9 63 18 130/87 (101) 97 97.9 06/18/25 12:13 Nasal Cannula 2.0 06/18/25 12:13 28 Total Intake and Output 06/17/25 06/17/25 06/18/25 15:00 23:00 07:00 Intake Total 50 ml 880 ml 375 ml Output Total 2275 ml 200 ml Balance 50 ml -1395 ml 175 ml medications Current Medications Medications Dose Ordered Sig/Quintin Route Start Time Stop Time Status Last Admin Dose Admin Aspirin 81 mg DAILY PO 06/15/25 10:00 06/18/25 09:12 81 MG Ceftriaxone Sodium 50 ml @ 100 mls/hr DAILY@09 IV 06/15/25 09:00 06/18/25 09:12 100 MLS/HR Clonidine HCl 0.1 mg Q4HP PRN PO 06/14/25 19:45 Levalbuterol HCl 0.625 mg Q6HR NEB 06/15/25 00:00 06/18/25 12:13 0.625 MG Sodium Chloride 10 ml Q8HR IV 06/14/25 22:00 06/18/25 05:41 10 ML Acetaminophen/ Hydrocodone Bitart 1 tab Q4HP PRN PO 06/14/25 19:45 Ondansetron HCl 4 mg Q4HP PRN IV 06/14/25 19:45 Docusate Sodium 100 mg BIDPRN PRN PO 06/14/25 19:45 Acetaminophen 650 mg Q6HP PRN PO 06/14/25 19:45 Nitroglycerin 0.4 mg Q5MINP PRN SL 06/14/25 21:15 Morphine Sulfate 2 mg Q30M PRN IV 06/14/25 21:15 Carvedilol 6.25 mg Q12HR PO 06/16/25 22:00 06/18/25 09:12 6.25 MG Spironolactone 12.5 mg DAILY PO 06/17/25 10:00 06/18/25 09:13 12.5 MG Losartan Potassium 12.5 mg DAILY PO 06/17/25 10:00 06/18/25 09:13 12.5 MG Furosemide 40 mg BIDD IV 06/17/25 18:00 06/18/25 05:41 40 MG Empaglifozin 10 mg DAILY PO 06/18/25 10:00 06/18/25 09:13 10 MG Temazepam 15 mg HSPRN PRN PO 06/17/25 18:15 06/18/25 01:14 15 MG Examination: GENERAL:Normal, HEENT:Normal, LUNGS:Normal, CVS:Normal, ABDOMEN:Normal, SKIN:Normal, NEURO:Normal laboratory and microbiology Laboratory Tests 06/18/25 06:15 Test 06/18/25 06:15 Range/Units Serum Glucose 151 H 74-106 mg/dL Problem List/Assessment/Plan Problem List/Assessment/Plan Assessment Acute on chronic decompensated systolic HF - EF of 15%, severe LV and RV global hypokinesis, moderate MR and TR and AI. RVSP 63 mmHg. Ischemic vs non-ischemic cardiomyopathy. NSVT up to 13 sec. NSTEMI likely type 2. HTN. Dyslipidemia- statin held given LFTs Acute hypoxic respiratory failure, pneumonia, CHF. JASKARAN. Medication noncompliance. Plan/Recommendation Continued all current supportive medical care. Patient has been seen by Flaquita Iraheta NP on my behalf, him and I discussed the plan with the patient. Continue preload and afterload reduction as tolerated. Initiate full GDMT for CHF and titrate as tolerated. Scheduled for cardiac catheterization with coronary angiogram on 06/19/25. Continue Coreg. Monitoring replace electrolytes. Continue with plan for ischemic workup once breathing stabilizes. Denies chest pain. EKG negative for acute ischemic changes. Continue on Aspirin. Continue current regimen, titrate as tolerated. Statin held given LFTs. Continue IV antibiotics. Continue diuresing. Outpatient sleep study recommended. Strongly advised compliance. Additional plan as per the hospital course. Plan discussed with: Patient Date of Service: Jun 18, 2025 Billing Provider: ROBERT CARRINGTON MD Cardiology Common Codes: [id number] HOSP CARE(High ROBERT CARRINGTON MD Jun 18, 2025 14:50
--- NOTE | 2025-06-18 23:55 | DVHPN2 ---
Reviewed: Care Plan, H&P, Labs, Medications, Previous Orders Changes from previous H/P or p: No Changes General: Per HPI Eyes: No Pain, No Vision change, No Conjunctivae inflammation, No Eyelid inflammation, No Other, No Redness ENT: No Ear pain, No Ear discharge, No Nose pain, No Nose discharge, No Nose congestion, No Mouth pain, No Mouth swelling, No Throat pain, No Throat swelling, No Other Cardiovascular: No Chest Pain, No Palpitations, No Orthopnea, No Paroxysmal Noc. Dyspnea, No Edema, No Lt Headedness, No Other Respiratory: No Cough, No Dry; Shortness of breath; No SOB with excertion, No Wheezing, No Hemoptysis, No Pleuritic Pain, No Sputum; Other (SOB at rest) Gastrointestinal: No Nausea, No Vomiting, No Abdominal Pain, No Diarrhea, No Constipation, No Melena, No Hematochezia, No Other Genitourinary: No Dysuria, No Frequency, No Incontinence, No Hematuria, No Retention, No Other Musculoskeletal: No other, No neck pain, No shoulder pain, No arm pain, No back pain, No hand pain, No leg pain, No foot pain Skin: No Rash, No Lesions, No Jaundice, No Bruising, No Other Objective Vitals Vital Signs Date Time Temp Pulse Resp B/P (MAP) Pulse Ox O2 Delivery O2 Flow Rate FiO2 06/18/25 23:30 75 18 99 06/18/25 22:42 123/85 06/18/25 21:00 98.2 98.2 06/18/25 18:07 Nasal Cannula 2.0 06/18/25 18:07 28 Intake/Output Intake and Output 06/18/25 07:00 Intake Total 1305 ml Output Total 2475 ml Balance -1170 ml Intake Oral 1255 ml IV Total 50 ml Output Urine Total 2475 ml # Voids 1 # Bowel Movements 1 General Appearance: Alert, Oriented X3, Cooperative HEENT: Atraumatic Cardiovascular: Regular rate, Normal S1, Normal S2 Medications Current Medications Medications Dose Ordered Sig/Quintin Route Start Time Stop Time Status Last Admin Dose Admin Aspirin 81 mg DAILY PO 06/15/25 10:00 06/18/25 09:12 81 MG Ceftriaxone Sodium 50 ml @ 100 mls/hr DAILY@09 IV 06/15/25 09:00 06/18/25 09:12 100 MLS/HR Clonidine HCl 0.1 mg Q4HP PRN PO 06/14/25 19:45 Levalbuterol HCl 0.625 mg Q6HR NEB 06/15/25 00:00 06/18/25 23:19 0.625 MG Sodium Chloride 10 ml Q8HR IV 06/14/25 22:00 06/18/25 21:20 10 ML Acetaminophen/ Hydrocodone Bitart 1 tab Q4HP PRN PO 06/14/25 19:45 Ondansetron HCl 4 mg Q4HP PRN IV 06/14/25 19:45 Docusate Sodium 100 mg BIDPRN PRN PO 06/14/25 19:45 Acetaminophen 650 mg Q6HP PRN PO 06/14/25 19:45 Nitroglycerin 0.4 mg Q5MINP PRN SL 06/14/25 21:15 Morphine Sulfate 2 mg Q30M PRN IV 06/14/25 21:15 Carvedilol 6.25 mg Q12HR PO 06/16/25 22:00 06/18/25 21:19 6.25 MG Spironolactone 12.5 mg DAILY PO 06/17/25 10:00 06/18/25 09:13 12.5 MG Losartan Potassium 12.5 mg DAILY PO 06/17/25 10:00 06/18/25 09:13 12.5 MG Furosemide 40 mg BIDD IV 06/17/25 18:00 06/18/25 17:41 40 MG Empaglifozin 10 mg DAILY PO 06/18/25 10:00 06/18/25 09:13 10 MG Temazepam 15 mg HSPRN PRN PO 06/17/25 18:15 06/18/25 22:52 15 MG Laboratory Results Laboratory Tests 06/18/25 06:15 Chemistry Test 06/18/25 06:15 Albumin 4.4 g/dL (3.2-4.8) Calcium Level 9.1 mg/dL (8.7-10.4) Total Protein 7.8 g/dL (5.7-8.2) LFT Test 06/18/25 06:15 Alanine Aminotransferase (ALT) 116 U/L (7-40) H Alkaline Phosphatase 99 U/L (46-116) Aspartate Amino Transferase (AST) 65 U/L (13-40) H Total Bilirubin 1.0 mg/dL (0.2-1.0) Urinalysis Test 06/14/25 18:49 Urine Color Light-yellow (Yellow) Urine Clarity Clear (Clear) Urine pH 6.5 (5.0-9.0) Urine Specific [place] 1.011 (1.001-1.035) Urine Protein Trace (Negative) H Urine Ketones Negative (Negative) Urine Blood Negative /uL (Negative) Urine Nitrite Negative (Negative) Urine Bilirubin Negative (Negative) Urine Urobilinogen Normal mg/dL (Negative) Urine Leukocyte Esterase Negative /uL (Negative) Urine RBC 1 /hpf (0 - 3) Urine Microscopic WBC < 1 /HPF (0-3) Urine Squamous Epithelial Cells None seen /hpf (<5) Urine Bacteria None seen /hpf (None Seen) Urine Glucose Normal mg/dL (Normal) Labs and/or images reviewed: Labs reviewed by me, Image(s) reviewed by me Assessment/Plan Assessment/Plan The patient is a 59 year male with past medical history of anemia, CHF, and hypertension who presented to [facility] ED with complaint of shortness of breaths. Patient reports he has been off of Lasix for the past 2 months, developed bilateral lower extremity swelling, increased work of breathing, getting worse today that prompted this visit. Patient was seen and evaluated in the ED, laboratory data shows WBC 7.8, platelets 220, sodium 142, potassium 4.1, BUN 16, creatinine 1.08, glucose 113, calcium 8.6, AST 63, ALT 117, troponin 482, BNP 708.26, blood pressure 167/123 trending down to 141/111, heart rate 100, temperature 98.4 F, O2 saturation 95% on oxygen. Chest x-ray revealing bilateral patchy airspace opacities, pulmonary vasculature is prominent, small bilateral pleural effusion, left greater than right, there is no pneumothorax..Patient was started on IV Lasix, please see medication orders section in the computer. On my assessment, patient denied chest pain, no headache, dizziness, Acute exacerbation of congestive heart failure: continue with diuresis Elevated troponin Hypertensive urgency Generalized weakness Acute systolic HF NSTEMI likely type 2 Cardiomyopathy HTN Dyslipidemia: on home meds Acute hypoxic respiratory failure, pneumonia: continue with Abx PNA JASKARAN NSVT Elevated LFTs Plan discussed with: Patient Date of Service: Jun 16, 2025 Billing Provider: MICAH GIBBS DO Common Visit Codes: [id number] INP/OBS CARE(HIGH) MICAH GIBBS DO Jun 18, 2025 23:55
[2025-06-19] VITALS (22 sets, daily range): BP systolic 98–142; BP diastolic 64–98; PULSE 67–142; RESP 14–96; TEMP 97–97.8; O2SAT 91–100
[2025-06-19] MEDS ORDERED: CARV-214 PO (00:38)
[2025-06-19] MEDS ORDERED: SPIR25TA PO (00:38)
[2025-06-19] MEDS ORDERED: EMPA1TAB PO (00:38)
[2025-06-19] MEDS ORDERED: ASPI-325 PO (00:38)
[2025-06-19] MEDS ORDERED: LOS25T PO (00:38)
[2025-06-19] MEDS ORDERED: LEVO500T91 PO (00:38)
[2025-06-19 07:07] LABS: Hematocrit 54.3 % (41.0-53.0); Hemoglobin 18.4 g/dL (13.5-17.5); Mean Corpuscular Hemoglobin 31.0 pg (28.0-32.0); Mean Corpuscular Volume 91.5 fL (80.0-100.0); Nucleated Red Blood Cells % 0.2 %
[2025-06-19 07:11] LABS: Anion Gap 11 (5-15); Carbon Dioxide 28 mmol/L (20-31); Chloride 101 mmol/L (98-107); Potassium 3.7 mmol/L (3.5-5.1); Sodium 140 mmol/L (136-145)
[2025-06-19 07:12] LABS: Calcium 9.2 mg/dL (8.7-10.4)
[2025-06-19 07:16] LABS: Glucose 101 mg/dL (74-106)
[2025-06-19 07:17] LABS: BUN/Creatinine Ratio 17.8 (10.0-20.0)
[2025-06-19 07:20] LABS: INR 1.07 (0.9-1.15); Partial Thromboplastin Time 26.5 SEC (24.5-34.5); Prothrombin Time 11.3 sec (9.3-11.8)
[2025-06-19 07:23] LABS: Blood Urea Nitrogen 23 mg/dL (9-23)
[2025-06-19] MEDS: IODIXANOL 320MG/ML 100ML BTL IV ONE (07:25)
[2025-06-19] MEDS: fentaNYL CITRATE 100 MCG/2 ML VL ONE (08:00)
[2025-06-19] MEDS: ANGIOMAX 250 MG VIAL IV ONE (08:00)
[2025-06-19] MEDS: VERAPAMIL 2.5MG/ML INJ 2ML VIAL IV ONE (08:00)
[2025-06-19] MEDS: SODIUM CHL 0.9% 0 ML ONE (08:00)
[2025-06-19] MEDS: MIDAZOLAM HCL 2MG/2ML 2ml VIAL (1mg/ml) ONE (08:00)
[2025-06-19] MEDS: HEPARIN SODIUM (PORCINE) 5000 UNITS/ML 1ML VIAL ONE (08:00)
[2025-06-19] MEDS: LIDOCAINE 2%HCL (LOCAL ANESTH.) INJ 20ML MDV ONE ×2 (08:01→08:53)
[2025-06-19] MEDS: ONDANSETRON HCL 4 MG/2 ML VIAL ONE (08:46)
--- NOTE | 2025-06-19 10:38 | DVHOP ---
DATE OF SURGERY: 06/19/2025 TECHNIQUES PERFORMED: * Right heart catheter. * Ultrasound of the right radial artery. * Ultrasound of the right femoral vein. * Left heart cath. * Left ventriculogram. * Teller selective left and right coronary angiography. TRANSPORTATION DISPATCHER: Assisted by Yessenia. Other assistants are Ludy Andino Michael, Thomas. INDICATIONS: Dilated cardiomyopathy, congestive heart failure. DESCRIPTION OF PROCEDURE: The procedure risks, benefits discussed. Counseling done, questions answered, information given. The patient was brought to our label sewer. The patient's right radial area was thoroughly cleaned with soap and Betadine and lidocaine was given. Ultrasound was done of the right radial artery. A 6-Nigerian arterial line had been placed in the right radial artery under ultrasound guidance. Subsequently, we have put the TIG catheter, 5-Nigerian 4.0 and the left coronary angiography done. With the help of similar catheter, we were also able to do the left heart cath and the left ventriculogram was also done and subsequently now from the right femoral vein, ultrasound was done and the 6-Nigerian venous sheath also had been passed from the right femoral vein. We have put Sterling-Manoj catheter under fluoroscopy and complete right cath had been done. A pulmonary vein was obtained. Pulmonary artery was obtained. Right ventricle procedure completed. IMPRESSION: * There is a normal left main. * The left anterior descending artery has been widely open and normal. * Circumflex artery, right dominant artery is normal. * Right groin is normal. The ejection fraction is in the range of only 15%. The patient's pulmonary artery pressure is in the range of 64 mmHg and is very high. CONCLUSIONS: This study revealed: * End-stage dilated cardiomyopathy. * Coronary arteries are normal. * Ejection fraction in the range of 15%, dilated left ventricle, severe global hypokinesis. * Severe pulmonary hypertension. Right ventricular systolic pressure is 64 mmHg. I advised the patient to be on Lasix, BELKYS inhibitor, Entresto and beta blockers and he is advised to see me as an outpatient. Lv Lozada MD MP/ERICK/RAMONA TID: [id number] RECEIPT: [id number] [facility]
--- NOTE | 2025-06-19 15:47 | DVHPN2 ---
Subjective Doing well Reviewed: Care Plan, H&P, Labs, Medications, Previous Orders Changes from previous H/P or p: Changes General: Per HPI Eyes: No Pain, No Vision change, No Conjunctivae inflammation, No Eyelid inflammation, No Other, No Redness ENT: No Ear pain, No Ear discharge, No Nose pain, No Nose discharge, No Nose congestion, No Mouth pain, No Mouth swelling, No Throat pain, No Throat swelling, No Other Cardiovascular: No Chest Pain, No Palpitations, No Orthopnea, No Paroxysmal Noc. Dyspnea, No Edema, No Lt Headedness, No Other Respiratory: No Cough, No Dry; Shortness of breath; No SOB with excertion, No Wheezing, No Hemoptysis, No Pleuritic Pain, No Sputum; Other (SOB at rest) Gastrointestinal: No Nausea, No Vomiting, No Abdominal Pain, No Diarrhea, No Constipation, No Melena, No Hematochezia, No Other Genitourinary: No Dysuria, No Frequency, No Incontinence, No Hematuria, No Retention, No Other Musculoskeletal: No other, No neck pain, No shoulder pain, No arm pain, No back pain, No hand pain, No leg pain, No foot pain Skin: No Rash, No Lesions, No Jaundice, No Bruising, No Other Objective Vitals Vital Signs Date Time Temp Pulse Resp B/P (MAP) Pulse Ox O2 Delivery O2 Flow Rate FiO2 06/19/25 13:00 97.0 79 18 110/82 (91) 93 97.0 06/18/25 20:00 Nasal Cannula* 2 28 Intake/Output Intake and Output 06/19/25 07:00 Intake Total 2044 ml Output Total 2975 ml Balance -931 ml Intake Oral 1994 ml IV Total 50 ml Output Urine Total 2975 ml # Bowel Movements 1 General Appearance: Alert, Oriented X3, Cooperative HEENT: Atraumatic Cardiovascular: Regular rate, Normal S1, Normal S2 Medications Current Medications Medications Dose Ordered Sig/Quintin Route Start Time Stop Time Status Last Admin Dose Admin Aspirin 81 mg DAILY PO 06/15/25 10:00 06/19/25 11:27 81 MG Ceftriaxone Sodium 50 ml @ 100 mls/hr DAILY@09 IV 06/15/25 09:00 06/19/25 11:32 100 MLS/HR Clonidine HCl 0.1 mg Q4HP PRN PO 06/14/25 19:45 Levalbuterol HCl 0.625 mg Q6HR NEB 06/15/25 00:00 06/19/25 11:43 0.625 MG Sodium Chloride 10 ml Q8HR IV 06/14/25 22:00 06/19/25 05:30 10 ML Acetaminophen/ Hydrocodone Bitart 1 tab Q4HP PRN PO 06/14/25 19:45 Ondansetron HCl 4 mg Q4HP PRN IV 06/14/25 19:45 Docusate Sodium 100 mg BIDPRN PRN PO 06/14/25 19:45 Acetaminophen 650 mg Q6HP PRN PO 06/14/25 19:45 Nitroglycerin 0.4 mg Q5MINP PRN SL 06/14/25 21:15 Morphine Sulfate 2 mg Q30M PRN IV 06/14/25 21:15 Carvedilol 6.25 mg Q12HR PO 06/16/25 22:00 06/19/25 11:25 6.25 MG Spironolactone 12.5 mg DAILY PO 06/17/25 10:00 06/19/25 11:26 12.5 MG Losartan Potassium 12.5 mg DAILY PO 06/17/25 10:00 06/19/25 11:25 12.5 MG Furosemide 40 mg BIDD IV 06/17/25 18:00 06/19/25 05:30 40 MG Empaglifozin 10 mg DAILY PO 06/18/25 10:00 06/19/25 11:26 10 MG Temazepam 15 mg HSPRN PRN PO 06/17/25 18:15 06/18/25 22:52 15 MG Laboratory Results Laboratory Tests 06/19/25 06:20 Chemistry Test 06/19/25 06:20 Calcium Level 9.2 mg/dL (8.7-10.4) Coagulation Test 06/19/25 06:20 Prothrombin Time 11.3 sec (9.3-11.8) Prothrombin Time INR 1.07 (0.9-1.15) Activated Partial Thromboplast Time 26.5 SEC (24.5-34.5) Urinalysis Test 06/14/25 18:49 Urine Color Light-yellow (Yellow) Urine Clarity Clear (Clear) Urine pH 6.5 (5.0-9.0) Urine Specific [place] 1.011 (1.001-1.035) Urine Protein Trace (Negative) H Urine Ketones Negative (Negative) Urine Blood Negative /uL (Negative) Urine Nitrite Negative (Negative) Urine Bilirubin Negative (Negative) Urine Urobilinogen Normal mg/dL (Negative) Urine Leukocyte Esterase Negative /uL (Negative) Urine RBC 1 /hpf (0 - 3) Urine Microscopic WBC < 1 /HPF (0-3) Urine Squamous Epithelial Cells None seen /hpf (<5) Urine Bacteria None seen /hpf (None Seen) Urine Glucose Normal mg/dL (Normal) Assessment/Plan Assessment/Plan Acute exacerbation of congestive heart failure, HFrEF Elevated troponin Hypertensive urgency Generalized weakness Acute systolic HF NSTEMI likely type 2 Cardiomyopathy HTN Dyslipidemia: on home meds Acute hypoxic respiratory failure, pneumonia: continue with Abx PNA JASKARAN NSVT Elevated LFTs PLAN: Lasix Heart cath: Clean arteries EF: 15% B-Blockers Aldactone Losartan Jardiance Monitor overnight Plan discussed with: Patient Date of Service: Jun 19, 2025 Billing Provider: RISHI BORREGO MD Common Visit Codes: [id number] INP/OBS CARE(HIGH) RISHI BORREGO MD Jun 19, 2025 15:47
--- NOTE | 2025-06-19 21:17 | DVHPN2 ---
Progress Note - Dictate Date Seen: Jun 19, 2025 Medical Necessity Reason Pt with a Central, PICC or Fol: No Subjective Patient was seen and evaluated in follow up. Patient underwent right heart catheter, left heart cath, [place] selective left and right coronary angiography. This study revealed: End-stage dilated cardiomyopathy. Coronary arteries are normal. Ejection fraction in the range of 15%, dilated left ventricle, severe global hypokinesis. Severe pulmonary hypertension. Right ventricular systolic pressure is 64 mmHg. I advised the patient to be on Lasix, BELKYS inhibitor, Entresto and beta blockers and he is advised to see me as an outpatient. Telemetry reviewed. vital signs Vital Sign Date Time Temp Pulse Resp B/P (MAP) Pulse Ox O2 Delivery O2 Flow Rate FiO2 06/19/25 17:51 141/74 06/19/25 17:39 96 Nasal Cannula 2.0 06/19/25 17:39 28 06/19/25 17:38 76 20 06/19/25 17:00 97.5 97.5 Total Intake and Output 06/18/25 06/18/25 06/19/25 15:00 23:00 07:00 Intake Total 50 ml 1294 ml 700 ml Output Total 2375 ml 600 ml Balance 50 ml -1081 ml 100 ml medications Current Medications Medications Dose Ordered Sig/Quintin Route Start Time Stop Time Status Last Admin Dose Admin Aspirin 81 mg DAILY PO 06/15/25 10:00 06/19/25 11:27 81 MG Ceftriaxone Sodium 50 ml @ 100 mls/hr DAILY@09 IV 06/15/25 09:00 06/19/25 11:32 100 MLS/HR Clonidine HCl 0.1 mg Q4HP PRN PO 06/14/25 19:45 Levalbuterol HCl 0.625 mg Q6HR NEB 06/15/25 00:00 06/19/25 17:38 0.625 MG Sodium Chloride 10 ml Q8HR IV 06/14/25 22:00 06/19/25 14:00 10 ML Acetaminophen/ Hydrocodone Bitart 1 tab Q4HP PRN PO 06/14/25 19:45 Ondansetron HCl 4 mg Q4HP PRN IV 06/14/25 19:45 Docusate Sodium 100 mg BIDPRN PRN PO 06/14/25 19:45 Acetaminophen 650 mg Q6HP PRN PO 06/14/25 19:45 Nitroglycerin 0.4 mg Q5MINP PRN SL 06/14/25 21:15 Morphine Sulfate 2 mg Q30M PRN IV 06/14/25 21:15 Carvedilol 6.25 mg Q12HR PO 06/16/25 22:00 06/19/25 11:25 6.25 MG Spironolactone 12.5 mg DAILY PO 06/17/25 10:00 06/19/25 11:26 12.5 MG Losartan Potassium 12.5 mg DAILY PO 06/17/25 10:00 06/19/25 11:25 12.5 MG Furosemide 40 mg BIDD IV 06/17/25 18:00 06/19/25 17:51 40 MG Empaglifozin 10 mg DAILY PO 06/18/25 10:00 06/19/25 11:26 10 MG Temazepam 15 mg HSPRN PRN PO 06/17/25 18:15 06/18/25 22:52 15 MG objective GENERAL: Alert and oriented x 3. No acute distress. EYES: PERRL, EOMI. Anicteric. HENT: Moist mucous membranes. LUNGS: Diminished breath sounds. CARDIOVASCULAR: Regular rate and rhythm. ABDOMEN: Soft, nontender and nondistended. EXTREMITIES: No edema. NEUROLOGIC: No focal neurological deficits. SKIN: Warm, dry. laboratory and microbiology Laboratory Tests 06/19/25 06:20 Test 06/19/25 06:20 Range/Units Serum Glucose 101 74-106 mg/dL Problem List Acute on chronic decompensated systolic HF - EF of 15%, severe LV and RV global hypokinesis, moderate MR and TR and AI. RVSP 63 mmHg. Ischemic vs non-ischemic cardiomyopathy. NSVT up to 13 sec. NSTEMI likely type 2. HTN. Dyslipidemia- statin held given LFTs Acute hypoxic respiratory failure, pneumonia, CHF. JASKARAN. Medication noncompliance. End-stage dilated cardiomyopathy. Assessment/Plan Continued all current supportive medical care. Aspirin. Morphine and [place] for pain management. Aldactone. Clonidine, Coreg, Losartan. Diuretics with Lasix. IV antibiotics as ordered. Additional plan as per the hospital course. Plan discussed with: Patient ROBERT CARRINGTON MD Jun 19, 2025 20:26
[2025-06-20] VITALS (16 sets, daily range): BP systolic 99–128; BP diastolic 59–91; PULSE 67–83; RESP 16–22; TEMP 97–98.6; O2SAT 91–100
[2025-06-20 07:06] LABS: Alkaline Phosphatase 103 U/L (46-116); Anion Gap 9 (5-15); BUN/Creatinine Ratio 20.5 (10.0-20.0); Calcium 8.8 mg/dL (8.7-10.4); Carbon Dioxide 30 mmol/L (20-31); Chloride 99 mmol/L (98-107); Glucose 105 mg/dL (74-106); Magnesium 2.6 mg/dL (1.6-2.6); Potassium 3.8 mmol/L (3.5-5.1); Sodium 138 mmol/L (136-145); Total Protein 8.0 g/dL (5.7-8.2)
[2025-06-20 07:07] LABS: Albumin 4.5 g/dL (3.2-4.8)
[2025-06-20 07:12] LABS: Alanine Aminotransferase 93 U/L (7-40); Bilirubin, Total 1.3 mg/dL (0.2-1.0); Blood Urea Nitrogen 24 mg/dL (9-23)
--- NOTE | 2025-06-20 13:55 | DVHPN2 ---
Subjective Doing well No new complaints Reviewed: Care Plan, H&P, Labs, Medications, Previous Orders Changes from previous H/P or p: Changes General: Per HPI Eyes: No Pain, No Vision change, No Conjunctivae inflammation, No Eyelid inflammation, No Other, No Redness ENT: No Ear pain, No Ear discharge, No Nose pain, No Nose discharge, No Nose congestion, No Mouth pain, No Mouth swelling, No Throat pain, No Throat swelling, No Other Cardiovascular: No Chest Pain, No Palpitations, No Orthopnea, No Paroxysmal Noc. Dyspnea, No Edema, No Lt Headedness, No Other Respiratory: No Cough, No Dry; Shortness of breath; No SOB with excertion, No Wheezing, No Hemoptysis, No Pleuritic Pain, No Sputum; Other (SOB at rest) Gastrointestinal: No Nausea, No Vomiting, No Abdominal Pain, No Diarrhea, No Constipation, No Melena, No Hematochezia, No Other Genitourinary: No Dysuria, No Frequency, No Incontinence, No Hematuria, No Retention, No Other Musculoskeletal: No other, No neck pain, No shoulder pain, No arm pain, No back pain, No hand pain, No leg pain, No foot pain Skin: No Rash, No Lesions, No Jaundice, No Bruising, No Other Objective Vitals Vital Signs Date Time Temp Pulse Resp B/P (MAP) Pulse Ox O2 Delivery O2 Flow Rate FiO2 06/20/25 12:45 97.5 79 16 128/91 (103) 97 97.5 06/20/25 10:00 Nasal Cannula 2.0 06/20/25 10:00 28 Intake/Output Intake and Output 06/20/25 07:00 Intake Total 1924 ml Output Total 2650 ml Balance -726 ml Intake Oral 1874 ml IV Total 50 ml Output Urine Total 2650 ml # Bowel Movements 1 General Appearance: Alert, Oriented X3, Cooperative HEENT: Atraumatic Cardiovascular: Regular rate, Normal S1, Normal S2 Medications Current Medications Medications Dose Ordered Sig/Quintin Route Start Time Stop Time Status Last Admin Dose Admin Aspirin 81 mg DAILY PO 06/15/25 10:00 06/20/25 08:50 81 MG Ceftriaxone Sodium 50 ml @ 100 mls/hr DAILY@09 IV 06/15/25 09:00 06/20/25 08:49 100 MLS/HR Clonidine HCl 0.1 mg Q4HP PRN PO 06/14/25 19:45 Levalbuterol HCl 0.625 mg Q6HR NEB 06/15/25 00:00 06/20/25 11:30 0.625 MG Sodium Chloride 10 ml Q8HR IV 06/14/25 22:00 06/20/25 05:29 10 ML Acetaminophen/ Hydrocodone Bitart 1 tab Q4HP PRN PO 06/14/25 19:45 Ondansetron HCl 4 mg Q4HP PRN IV 06/14/25 19:45 Docusate Sodium 100 mg BIDPRN PRN PO 06/14/25 19:45 Acetaminophen 650 mg Q6HP PRN PO 06/14/25 19:45 Nitroglycerin 0.4 mg Q5MINP PRN SL 06/14/25 21:15 Morphine Sulfate 2 mg Q30M PRN IV 06/14/25 21:15 Carvedilol 6.25 mg Q12HR PO 06/16/25 22:00 06/20/25 08:53 6.25 MG Spironolactone 12.5 mg DAILY PO 06/17/25 10:00 06/20/25 08:52 12.5 MG Losartan Potassium 12.5 mg DAILY PO 06/17/25 10:00 06/20/25 08:51 12.5 MG Furosemide 40 mg BIDD IV 06/17/25 18:00 06/20/25 05:29 40 MG Empaglifozin 10 mg DAILY PO 06/18/25 10:00 06/20/25 08:50 10 MG Temazepam 15 mg HSPRN PRN PO 06/17/25 18:15 06/18/25 22:52 15 MG Laboratory Results Laboratory Tests 06/19/25 06:20 06/20/25 06:08 Chemistry Test 06/20/25 06:08 Albumin 4.5 g/dL (3.2-4.8) Calcium Level 8.8 mg/dL (8.7-10.4) Magnesium Level 2.6 mg/dL (1.6-2.6) Total Protein 8.0 g/dL (5.7-8.2) LFT Test 06/20/25 06:08 Alanine Aminotransferase (ALT) 93 U/L (7-40) H Alkaline Phosphatase 103 U/L (46-116) Aspartate Amino Transferase (AST) 49 U/L (13-40) H Total Bilirubin 1.3 mg/dL (0.2-1.0) H Urinalysis Test 06/14/25 18:49 Urine Color Light-yellow (Yellow) Urine Clarity Clear (Clear) Urine pH 6.5 (5.0-9.0) Urine Specific [place] 1.011 (1.001-1.035) Urine Protein Trace (Negative) H Urine Ketones Negative (Negative) Urine Blood Negative /uL (Negative) Urine Nitrite Negative (Negative) Urine Bilirubin Negative (Negative) Urine Urobilinogen Normal mg/dL (Negative) Urine Leukocyte Esterase Negative /uL (Negative) Urine RBC 1 /hpf (0 - 3) Urine Microscopic WBC < 1 /HPF (0-3) Urine Squamous Epithelial Cells None seen /hpf (<5) Urine Bacteria None seen /hpf (None Seen) Urine Glucose Normal mg/dL (Normal) Assessment/Plan Assessment/Plan Acute exacerbation of congestive heart failure, HFrEF Elevated troponin Hypertensive urgency Generalized weakness Acute systolic HF NSTEMI likely type 2 Cardiomyopathy HTN Dyslipidemia: on home meds Acute hypoxic respiratory failure, pneumonia: continue with Abx PNA JASKARAN NSVT Elevated LFTs PLAN: Lasix Heart cath: Clean arteries EF: 15% B-Blockers Aldactone Losartan Jardiance Monitor overnight 06/20/2025: Hypoxia: Arrange home O2 Order blood gas on room air Continue Lasix New beta blockers and Aldactone and losartan and Jardiance Discharge planning once the home O2 is arranged Plan discussed with: Patient Date of Service: Jun 20, 2025 Billing Provider: RISHI BORREGO MD Common Visit Codes: [id number] INP/OBS CARE(HIGH) RISHI BORREGO MD Jun 20, 2025 13:55
[2025-06-20 16:55] LABS: Base Excess 1.6 mmol/L (-2.0-3.0)
--- NOTE | 2025-06-20 21:58 | DVHPN2 ---
Progress Note - Dictate Date Seen: Jun 20, 2025 Medical Necessity Reason Pt with a Central, PICC or Fol: No Subjective Patient was seen and evaluated in follow up. Patient complains of generalized pain. BUN 24, AST 49, ALT 93. Telemetry reviewed. vital signs Vital Sign Date Time Temp Pulse Resp B/P (MAP) Pulse Ox O2 Delivery O2 Flow Rate FiO2 06/20/25 10:00 97 Nasal Cannula 2.0 06/20/25 10:00 28 06/20/25 09:53 75 125/88 06/20/25 08:57 97.6 16 97.6 Total Intake and Output 06/19/25 06/19/25 06/20/25 14:59 22:59 06:59 Intake Total 50 ml 1524 ml 350 ml Output Total 1950 ml 700 ml Balance 50 ml -426 ml -350 ml medications Current Medications Medications Dose Ordered Sig/Quintin Route Start Time Stop Time Status Last Admin Dose Admin Aspirin 81 mg DAILY PO 06/15/25 10:00 06/20/25 08:50 81 MG Ceftriaxone Sodium 50 ml @ 100 mls/hr DAILY@09 IV 06/15/25 09:00 06/20/25 08:49 100 MLS/HR Clonidine HCl 0.1 mg Q4HP PRN PO 06/14/25 19:45 Levalbuterol HCl 0.625 mg Q6HR NEB 06/15/25 00:00 06/20/25 11:30 0.625 MG Sodium Chloride 10 ml Q8HR IV 06/14/25 22:00 06/20/25 05:29 10 ML Acetaminophen/ Hydrocodone Bitart 1 tab Q4HP PRN PO 06/14/25 19:45 Ondansetron HCl 4 mg Q4HP PRN IV 06/14/25 19:45 Docusate Sodium 100 mg BIDPRN PRN PO 06/14/25 19:45 Acetaminophen 650 mg Q6HP PRN PO 06/14/25 19:45 Nitroglycerin 0.4 mg Q5MINP PRN SL 06/14/25 21:15 Morphine Sulfate 2 mg Q30M PRN IV 06/14/25 21:15 Carvedilol 6.25 mg Q12HR PO 06/16/25 22:00 06/20/25 08:53 6.25 MG Spironolactone 12.5 mg DAILY PO 06/17/25 10:00 06/20/25 08:52 12.5 MG Losartan Potassium 12.5 mg DAILY PO 06/17/25 10:00 06/20/25 08:51 12.5 MG Furosemide 40 mg BIDD IV 06/17/25 18:00 06/20/25 05:29 40 MG Empaglifozin 10 mg DAILY PO 06/18/25 10:00 06/20/25 08:50 10 MG Temazepam 15 mg HSPRN PRN PO 06/17/25 18:15 06/18/25 22:52 15 MG objective GENERAL: Alert and oriented x 3. No acute distress. EYES: PERRL, EOMI. Anicteric. HENT: Moist mucous membranes. LUNGS: Diminished breath sounds. CARDIOVASCULAR: Regular rate and rhythm. ABDOMEN: Soft, nontender and nondistended. EXTREMITIES: No edema. NEUROLOGIC: No focal neurological deficits. SKIN: Warm, dry. laboratory and microbiology Laboratory Tests 06/20/25 06:08 06/19/25 06:20 Test 06/20/25 06:08 Range/Units Serum Glucose 105 74-106 mg/dL Problem List Acute on chronic decompensated systolic HF - EF of 15%, severe LV and RV global hypokinesis, moderate MR and TR and AI. RVSP 63 mmHg. Ischemic vs non-ischemic cardiomyopathy. NSVT up to 13 sec. NSTEMI likely type 2. HTN. Dyslipidemia- statin held given LFTs Acute hypoxic respiratory failure, pneumonia, CHF. JASKARAN. Medication noncompliance. End-stage dilated cardiomyopathy. Assessment/Plan Continued all current supportive medical care. Aspirin. Morphine and [place] for pain management. Aldactone. Clonidine, Coreg, Losartan. Diuretics with Lasix. IV antibiotics as ordered. Additional plan as per the hospital course. Plan discussed with: Patient ROBERT CARRINGTON MD Jun 20, 2025 12:15
[2025-06-21] VITALS (11 sets, daily range): BP systolic 100–119; BP diastolic 67–82; PULSE 64–80; RESP 17–20; TEMP 36.8; O2SAT 91–100
[2025-06-21 07:02] LABS: Anion Gap 11 (5-15); Calcium 9.1 mg/dL (8.7-10.4); Carbon Dioxide 27 mmol/L (20-31); Chloride 100 mmol/L (98-107); Sodium 138 mmol/L (136-145)
[2025-06-21 07:04] LABS: Potassium 3.5 mmol/L (3.5-5.1)
[2025-06-21 07:08] LABS: BUN/Creatinine Ratio 17.2 (10.0-20.0); Blood Urea Nitrogen 21 mg/dL (9-23); Glucose 89 mg/dL (74-106)
[2025-06-21 07:18] LABS: Magnesium 2.8 mg/dL (1.6-2.6)
[2025-06-21] MEDS ORDERED: FURO1TAB31 PO (12:32)
--- NOTE | 2025-06-21 12:37 | DVHDS2 ---
Discharge Summary Date of Admission Jun 14, 2025 at 21:15 Date of Discharge: Jun 21, 2025 Labs/Diagnostic Data: Laboratory Results Test 06/21/25 04:41 06/20/25 15:08 06/20/25 06:08 06/19/25 06:20 Sodium Level 138 mmol/L (136-145) Potassium Level 3.5 mmol/L (3.5-5.1) Chloride Level 100 mmol/L (98-107) Carbon Dioxide Level 27 mmol/L (20-31) Anion Gap 11 (5-15) Blood Urea Nitrogen 21 mg/dL (9-23) Creatinine 1.22 mg/dL (0.700-1.30) Glomerular Filtration Rate Calc 68 mL/min (>90) BUN/Creatinine Ratio 17.2 (10.0-20.0) Serum Glucose 89 mg/dL (74-106) Calcium Level 9.1 mg/dL (8.7-10.4) Magnesium Level 2.8 mg/dL (1.6-2.6) Blood Gas Specimen Type Arterial Blood Gas Sample Site Right radial Blood Gas Patient Temperature 37.0 Arterial Blood Date Drawn [id number] Arterial Blood pH 7.431 (7.350-7.450) Arterial Blood Partial Pressure CO2 39.8 mmHg (35.0-48.0) Arterial Blood Partial Pressure O2 60.5 mmHg (83.0-108.0) Arterial Blood HCO3 25.9 mmol/L (21.0-28.0) Arterial Blood Oxygen Saturation 91.0 % (94.0-98.0) Arterial Blood Base Excess 1.6 mmol/L (-2.0-3.0) Arterial Blood Oxyhemoglobin 89.9 % (94.0-98.0) Arterial Blood Carboxyhemoglobin 0.6 % (0.5-1.5) Arterial Blood Methemoglobin 0.6 % (0.0-1.5) Prince Test Yes Blood Gas Total Hemoglobin 19.70 g/dL (13.5-17.5) Blood Gas Modality Room air FiO2 % 21.0 Blood Gas Critical Value Read Back Yes Blood Gas Notified Whom Dr. keara john Blood Gas Notified Time [id number] Blood Gas Notified By Total Bilirubin 1.3 mg/dL (0.2-1.0) Aspartate Amino Transferase (AST) 49 U/L (13-40) Alanine Aminotransferase (ALT) 93 U/L (7-40) Alkaline Phosphatase 103 U/L (46-116) Total Protein 8.0 g/dL (5.7-8.2) Albumin 4.5 g/dL (3.2-4.8) White Blood Count 8.8 10^3/uL (4.4-10.8) Red Blood Count 5.94 10^6/uL (4.5-5.90) Hemoglobin 18.4 g/dL (13.5-17.5) Hematocrit 54.3 % (41.0-53.0) Mean Corpuscular Volume 91.5 fL (80.0-100.0) Mean Corpuscular Hemoglobin 31.0 pg (28.0-32.0) Mean Corpuscular Hemoglobin Concent 33.8 g/dL (32.0-36.0) Red Cell Distribution Width 16.6 % (11.8-14.3) Platelet Count 235 10^3/uL (140-450) Mean Platelet Volume 10.0 fL (6.9-10.8) Neutrophils (%) (Auto) 67.3 % (37.0-80.0) Lymphocytes (%) (Auto) 17.6 % (10.0-50.0) Monocytes (%) (Auto) 12.3 % (0.0-12.0) Eosinophils (%) (Auto) 1.6 % (0.0-7.0) Basophils (%) (Auto) 1.2 % (0.0-2.0) Neutrophils # (Auto) 5.9 10 ^3/uL (1.6-8.6) Lymphocytes # (Auto) 1.6 10 ^3/uL (0.4-5.4) Monocytes # (Auto) 1.1 10 ^3/uL (0-1.3) Eosinophils # (Auto) 0.1 10 ^3/uL (0-0.8) Basophils # (Auto) 0.1 10 ^3/uL (0-0.2) Nucleated Red Blood Cells 0.2 % Prothrombin Time 11.3 sec (9.3-11.8) Prothrombin Time INR 1.07 (0.9-1.15) Activated Partial Thromboplast Time 26.5 SEC (24.5-34.5) Test 06/17/25 14:19 06/16/25 08:27 06/15/25 06:55 06/14/25 18:49 Hemoglobin A1c 6.0 % A1C (<5.7) B-Type Natriuretic Peptide 434.86 pg/mL (0-100) Thyroid Stimulating Hormone (TSH) 2.01 uIU/mL (0.55-4.78) Troponin I High Sensitivity 292 ng/L (</=54) Triglycerides Level 138 mg/dL (< 150) Cholesterol Level 169 mg/dL (< 200) LDL Cholesterol 112 mg/dL (< 100) HDL Cholesterol 39 mg/dL (40-59) Urine Color Light-yellow (Yellow) Urine Clarity Clear (Clear) Urine pH 6.5 (5.0-9.0) Urine Specific [place] 1.011 (1.001-1.035) Urine Protein Trace (Negative) Urine Ketones Negative (Negative) Urine Blood Negative /uL (Negative) Urine Nitrite Negative (Negative) Urine Bilirubin Negative (Negative) Urine Urobilinogen Normal mg/dL (Negative) Urine Leukocyte Esterase Negative /uL (Negative) Urine RBC 1 /hpf (0 - 3) Urine Microscopic WBC < 1 /HPF (0-3) Urine Squamous Epithelial Cells None seen /hpf (<5) Urine Bacteria None seen /hpf (None Seen) Urine Glucose Normal mg/dL (Normal) Test 06/14/25 09:33 Urine Opiates Screen Neg (NEGATIVE) Urine Fentanyl Screen Neg (NEGATIVE) Urine Barbiturates Screen Neg (NEGATIVE) Urine Phencyclidine Screen Neg (NEGATIVE) Urine Amphetamines Screen Neg (NEGATIVE) Urine Benzodiazepines Screen Neg (NEGATIVE) Urine Cocaine Screen Neg (NEGATIVE) Urine Cannabinoids Screen Pos (NEGATIVE) Other Laboratory Tests 06/21/25 04:41 06/19/25 06:20 Brief Hx & Hospital Course: Final diagnoses: Acute exacerbation of congestive heart failure, HFrEF Elevated troponin Hypertensive urgency Generalized weakness Acute systolic HF NSTEMI likely type 2 Cardiomyopathy HTN Dyslipidemia: on home meds Acute hypoxic respiratory failure, pneumonia: continue with Abx PNA JASKARAN NSVT Elevated LFTs 59-year-old male was admitted for shortness of breaths due to pneumonia and heart failure His ejection fraction is low at 15% He was diuresed with IV Lasix He was started on his GDMT regimen and overall he is doing well however he was still hypoxic and therefore we evaluated him for possible home O2 however he did not qualify He will be discharged home on Lasix and aspirin and Coreg and Levaquin and Jardiance and Aldactone and losartan No home O2 as necessary Follow up with his primary care physician and billing adjudicator as soon as possible Condition at Discharge: Stable Final Diagnosis/Problems List Acute exacerbation of congestive heart failure, HFrEF Elevated troponin Hypertensive urgency Generalized weakness Acute systolic HF NSTEMI likely type 2 Cardiomyopathy HTN Dyslipidemia: on home meds Acute hypoxic respiratory failure, pneumonia: continue with Abx PNA JASKARAN NSVT Elevated LFTs Discharge Disposition: Home SNF Discharge Will this Physician continue t: No Discharge Instruct/Medications Diet: Cardiac 2g Na,low cholest Activity: No Restrictions, As Tolerated Follow Up/Referral: PCP MARTÍN Medications: Levaquin Jardiance Aspirin Coreg Aldactone Losartan Lasix Scheduled Aspirin (Aspirin Low Dose), 81 MG PO DAILY Carvedilol (Coreg), 6.25 MG PO Q12HR Empagliflozin (Jardiance), 10 MG PO DAILY Furosemide (Lasix), 40 MG PO DAILY Levofloxacin Hemihydrate (Levofloxacin), 1 TAB PO DAILY Losartan Potassium (Losartan Potassium), 25 MG PO DAILY Spironolactone (Aldactone), 25 MG PO DAILY Discharge Statement: "Patient was advised to return to the ER or call 911 if any headaches, dizziness, shortness of breath, chest pain, abdominal pain, bleeding, fevers, or worsening of medical condition. Patient was counseled about treatment plan, medications, possible side effects, patientverbalized understanding. All questions were answered to the best of my ability. This discharge took greater then 30 minutes in planning, reviewing documentation, counseling the patient, and discussing with other team members." ASSESSMENT ASSESSMENT Assessment Acute exacerbation of congestive heart failure, HFrEF Elevated troponin Hypertensive urgency Generalized weakness Acute systolic HF NSTEMI likely type 2 Cardiomyopathy HTN Dyslipidemia: on home meds Acute hypoxic respiratory failure, pneumonia: continue with Abx PNA JASKARAN NSVT Elevated LFTs Date of Service: Jun 21, 2025 Billing Provider: RISHI JOHN MD Common Visit Codes: [id number] DISCH DAY >30min RISHI JOHN MD Jun 21, 2025 12:37
--- NOTE | 2025-06-21 13:59 | DVHPN2 ---
Progress Note - Dictate Date Seen: Jun 21, 2025 Medical Necessity Reason Pt with a Central, PICC or Fol: No Subjective Patient was seen and evaluated in follow up. Patient now on room air, denies any SOB. Patient complains of generalized pain. MG 2.8. Patient is cardiac stable for discharge. Telemetry reviewed. vital signs Vital Sign Date Time Temp Pulse Resp B/P (MAP) Pulse Ox O2 Delivery O2 Flow Rate FiO2 06/21/25 12:29 75 18 99 06/21/25 12:24 Room Air 0.0 06/21/25 12:24 21 06/21/25 10:31 119/81 06/21/25 09:00 79.8 79.8 Total Intake and Output 06/20/25 06/20/25 06/21/25 15:00 23:00 07:00 Intake Total 750 ml 100 ml Output Total 1400 ml 750 ml Balance -650 ml -650 ml medications Current Medications Medications Dose Ordered Sig/Quintin Route Start Time Stop Time Status Last Admin Dose Admin Aspirin 81 mg DAILY PO 06/15/25 10:00 06/21/25 10:30 81 MG Ceftriaxone Sodium 50 ml @ 100 mls/hr DAILY@09 IV 06/15/25 09:00 06/21/25 10:27 100 MLS/HR Clonidine HCl 0.1 mg Q4HP PRN PO 06/14/25 19:45 Levalbuterol HCl 0.625 mg Q6HR NEB 06/15/25 00:00 06/21/25 12:23 0.625 MG Sodium Chloride 10 ml Q8HR IV 06/14/25 22:00 06/21/25 06:11 10 ML Acetaminophen/ Hydrocodone Bitart 1 tab Q4HP PRN PO 06/14/25 19:45 Ondansetron HCl 4 mg Q4HP PRN IV 06/14/25 19:45 Docusate Sodium 100 mg BIDPRN PRN PO 06/14/25 19:45 Acetaminophen 650 mg Q6HP PRN PO 06/14/25 19:45 Nitroglycerin 0.4 mg Q5MINP PRN SL 06/14/25 21:15 Morphine Sulfate 2 mg Q30M PRN IV 06/14/25 21:15 Carvedilol 6.25 mg Q12HR PO 06/16/25 22:00 06/21/25 10:31 6.25 MG Spironolactone 12.5 mg DAILY PO 06/17/25 10:00 06/21/25 10:29 12.5 MG Losartan Potassium 12.5 mg DAILY PO 06/17/25 10:00 06/21/25 10:28 12.5 MG Furosemide 40 mg BIDD IV 06/17/25 18:00 06/21/25 06:08 40 MG Empaglifozin 10 mg DAILY PO 06/18/25 10:00 06/21/25 10:27 10 MG Temazepam 15 mg HSPRN PRN PO 06/17/25 18:15 06/18/25 22:52 15 MG objective GENERAL: Alert and oriented x 3. No acute distress. EYES: PERRL, EOMI. Anicteric. HENT: Moist mucous membranes. LUNGS: Diminished breath sounds. CARDIOVASCULAR: Regular rate and rhythm. ABDOMEN: Soft, nontender and nondistended. EXTREMITIES: No edema. NEUROLOGIC: No focal neurological deficits. SKIN: Warm, dry. laboratory and microbiology Laboratory Tests 06/21/25 04:41 06/19/25 06:20 Test 06/21/25 04:41 Range/Units Serum Glucose 89 74-106 mg/dL Problem List Acute on chronic decompensated systolic HF - EF of 15%, severe LV and RV global hypokinesis, moderate MR and TR and AI. RVSP 63 mmHg. Ischemic vs non-ischemic cardiomyopathy. NSVT up to 13 sec. NSTEMI likely type 2. HTN. Dyslipidemia- statin held given LFTs Acute hypoxic respiratory failure, pneumonia, CHF. JASKARAN. Medication noncompliance. End-stage dilated cardiomyopathy. Assessment/Plan Continued all current supportive medical care. Morphine and [place] for pain management. Aspirin. Coreg, Clonidine, Losartan. IV antibiotics as ordered. Diuretics with Lasix. Aldactone. Additional plan as per the hospital course. Plan discussed with: Patient ROBERT CARRINGTON MD Jun 21, 2025 12:41
== END 2025-06-21 16:22 | disposition home or self-care (01) | DRG 192 ==
LOC: ER 17:56 → EDBD 17:56 → OVERFLOW 21:15 → TELE-WESTW 06-15 09:44
PROVIDERS: ADMIT Internal Medicine Geriatric Medicine; ATTEND Internal Medicine Geriatric Medicine
PROC: 03HY32Z Insertion of Monitoring Device into Upper Artery, Percutaneous Approach (ICD-10-PCS; principal; 2025-06-19)
PROC: 4A023N8 Measurement of Cardiac Sampling and Pressure, Bilateral, Percutaneous Approach (ICD-10-PCS; 2025-06-19)
PROC: B211YZZ Fluoroscopy of Multiple Coronary Arteries using Other Contrast (ICD-10-PCS; 2025-06-19)
PROC: B215YZZ Fluoroscopy of Left Heart using Other Contrast (ICD-10-PCS; 2025-06-19)
DX: I11.0 Hypertensive heart disease with heart failure (principal); J96.01 Acute respiratory failure with hypoxia; J15.69 Pneumonia due to other Gram-negative bacteria; I21.A1 Myocardial infarction type 2; I47.20 Ventricular tachycardia, unspecified; I27.20 Pulmonary hypertension, unspecified; J15.9 Unspecified bacterial pneumonia; I16.0 Hypertensive urgency; D64.9 Anemia, unspecified; E11.9 Type 2 diabetes mellitus without complications; I50.23 Acute on chronic systolic (congestive) heart failure; E66.9 Obesity, unspecified; E78.5 Hyperlipidemia, unspecified; J98.11 Atelectasis; G47.33 Obstructive sleep apnea (adult) (pediatric); I42.0 Dilated cardiomyopathy; Z82.49 Family history of ischemic heart disease and other diseases of the circulatory system; Z91.148 Patient's other noncompliance with medication regimen for other reason; Z68.36 Body mass index [BMI] 36.0-36.9, adult
CPT/HCPCS: 36415; 36600; 71045; 80048; 80053; 80061; 80307; 81001; 82805; 83036; 83735; 83880; 84443; 84484; 85025; 85610; 85730; 93005; 93306; 93460; 94640; 99152; 99291; G0378; J2250; J2405; Q9967